=== PATIENT | female | born 1940 | race Caucasian/White ===

== ENCOUNTER 2017-05-14 16:11 | Inpatient (IN) ==
--- NOTE | 2017-05-14 16:20 | Emergency Department Note ---
Disposition Clinical Impression: Weakness of right leg, TIA (transient ischemic attack) Disposition: Admitted As Inpatient Condition: Good General Adult HPI - General Time Seen by Provider: 05/14/17 16:12 Nursing Notes Reviewed: Yes Vital Signs Reviewed: Yes - Related Data Home Medications Medication Instructions Recorded Confirmed Atorvastatin Calcium [Lipitor] 20 mg PO HS 05/13/17 05/13/17 Cholecalciferol (D-3) [Vitamin D] 1,000 unit PO DAILY 05/13/17 05/13/17 Doxazosin [Cardura] 8 mg PO DAILY 05/13/17 05/13/17 Furosemide [Lasix] 20 mg PO DAILY 05/13/17 05/13/17 Levothyroxine Sodium [Synthroid] 137 mcg PO 0630 05/13/17 05/13/17 Lisinopril [Zestril] 40 mg PO DAILY 05/13/17 05/13/17 Metoprolol Succinate [Toprol Xl] 50 mg PO DAILY 05/13/17 05/13/17 Mirabegron [Myrbetriq] 50 mg PO DAILY 05/13/17 05/13/17 [place]-3/Dha/Epa/Fish Oil [Fish Oil 1 tab PO DAILY 05/13/17 05/13/17 1,000 mg Softgel] Previous Rx's Medication Instructions Recorded Docusate [Colace] 100 mg PO BID #60 capsule 05/13/17 HYDROcodone/Acet 5/325 mg [[place] 1 tab PO Q4H PRN 5 Days #20 tab 05/13/17 5-325 mg] Allergies Allergy/AdvReac Type Severity Reaction Status Date / Time No Known Allergies Allergy Verified 05/13/17 08:56 Past Medical History - Past Medical History Medical history: Reports: hypertension, thyroid disease Surgical history: Reports: hysterectomy Psychiatric history: Reports: depression - Social History Smoking Status: Former smoker Smokeless Tobacco Status: No Alcohol use: Reports: none Drug use: Reports: none Course Vital Signs Temperature 98.0 F 05/14/17 16:13 Pulse Rate 57 05/14/17 16:13 Respiratory Rate 18 05/14/17 16:13 Blood Pressure 146/95 05/14/17 16:13 O2 Sat by Pulse Oximetry 96 05/14/17 16:13 Temperature 98.2 F 05/14/17 19:04 Pulse Rate 43 05/14/17 19:04 Respiratory Rate 16 05/14/17 19:04 Blood Pressure 143/89 05/14/17 19:04 O2 Sat by Pulse Oximetry 93 05/14/17 19:04 Oxygen Delivery Oxygen Delivery Room Air Medical Decision Making - MDM Narrative Medical decision making narrative: This documentation is done with the assistance of Dragon dictation. Despite efforts made to ensure accuracy, there may be inaccuracies in director of pupil personnel program or spelling and typographical errors. I examined this patient and my medical decision-making was reviewed with the Resident Physician. I agree with the documented findings, disposition and treatment plan as described except to the extent set forth below. Patient seen on arrival with EMS and Dr. Radford, I agree with his evaluation and treatment plan, supervise care the patient's stay. Patient presents today with possible stroke. She had a 2430 like usual felt fine about 10:00 this morning she thought her face was slightly drooped had some weakness they called the squad she refused to be transported she felt like she was getting better. Still in quite Dr. normal self the called now her agreed that her weakness is pretty much resolved she has not any facial droop at this time no headaches possible history of stroke years ago. She has had a recent bladder surgery and has a catheter in place otherwise she feels fine. Return to CT her head lab work and reassess. This sounds like she could have had a TIA. She is in agreement with this plan. She is not meet stroke alert criteria. Head CT 05/14/17 16:18 IMPRESSION: No acute intracranial abnormality. D/ / Carlos Liao MD / Carlos Liao MD Interpreting Provider: Carlos Liao MD 1724 hrs.: No signs of acute CVA. Her symptoms pretty much withdrawn. We will speak to her about admission for TIA workup. - Lab Data Result diagrams: 05/14/17 16:18 05/14/17 16:18 Lab Results 05/14/17 05/14/17 05/14/17 Range/Units 16:16 16:18 16:18 WBC 11.4 H (4.3-11.1) K/mcL RBC 4.32 (3.82-4.97) M/mcL Hgb 13.3 (11.5-15.4) g/dL Hct 40.5 (35.3-44.9) % MCV 93.8 (83.0-100.0) fL MCH 30.8 (28.0-33.3) pg MCHC 32.8 (31.6-35.5) g/dL RDW 13.3 (11.5-14.5) % Plt Count 144 (140-400) K/mcL MPV 12.8 H (9.4-12.4) fL Immature Gran % 0.3 (0-4) % Seg Neutrophils % 61.5 % Lymphocytes % 29.7 % Monocytes % 6.9 % Eosinophils % 1.2 % Basophils % 0.4 % Neutrophils # 7.0 (1.6-8.9) K/mcL Lymphocytes # 3.4 (0.6-4.6) K/mcL Monocytes # 0.8 (0.0-1.3) K/mcL Eosinophils # 0.1 (0.0-0.6) K/mcL Basophils # 0.0 (0.0-0.2) K/mcL PT (9.4-12.1) Seconds INR APTT (26.0-36.0) Seconds Sodium 141 (136-145) mEq/L Potassium 3.7 (3.5-5.1) mEq/L Chloride 104 (98-107) mEq/L Carbon Dioxide 28 (23-29) mEq/L BUN 21 (8-23) mg/dL Creatinine 0.89 (0.60-1.20) mg/dL Est GFR ( Amer) > 60 (> 60) Est GFR (Non-Af Amer) > 60 (> 60) BUN/Creatinine Ratio 24 (6-26) Glucose 147 H (70-105) mg/dL POC Glucose 135 H (58-89) Calculated Osmolality 298 (280-300) Calcium 9.8 (8.6-10.3) mg/dL 05/14/17 Range/Units 16:22 WBC (4.3-11.1) K/mcL RBC (3.82-4.97) M/mcL Hgb (11.5-15.4) g/dL Hct (35.3-44.9) % MCV (83.0-100.0) fL MCH (28.0-33.3) pg MCHC (31.6-35.5) g/dL RDW (11.5-14.5) % Plt Count (140-400) K/mcL MPV (9.4-12.4) fL Immature Gran % (0-4) % Seg Neutrophils % % Lymphocytes % % Monocytes % % Eosinophils % % Basophils % % Neutrophils # (1.6-8.9) K/mcL Lymphocytes # (0.6-4.6) K/mcL Monocytes # (0.0-1.3) K/mcL Eosinophils # (0.0-0.6) K/mcL Basophils # (0.0-0.2) K/mcL PT 11.0 (9.4-12.1) Seconds INR 1.0 APTT 27.0 (26.0-36.0) Seconds Sodium (136-145) mEq/L Potassium (3.5-5.1) mEq/L Chloride (98-107) mEq/L Carbon Dioxide (23-29) mEq/L BUN (8-23) mg/dL Creatinine (0.60-1.20) mg/dL Est GFR ( Amer) (> 60) Est GFR (Non-Af Amer) (> 60) BUN/Creatinine Ratio (6-26) Glucose (70-105) mg/dL POC Glucose (58-89) Calculated Osmolality (280-300) Calcium (8.6-10.3) mg/dL
--- NOTE | 2017-05-14 16:28 | Emergency Department Note ---
Disposition Clinical Impression: Weakness of right leg TIA (transient ischemic attack) Qualifiers: Transient cerebral ischemia type: unspecified Qualified Code(s): G45.9 - Transient cerebral ischemic attack, unspecified Disposition: Admitted As Inpatient Condition: Good Referrals: Michael Steve MD [Primary Care Provider] - Forms: ED Satisfaction Letter Time of Disposition: 18:23 Neuro HPI - General Chief Complaint: ED Neuro Symptoms/Deficit Stated Complaint: possible TIA Time Seen by Provider: 05/14/17 16:12 Source: patient, EMS Mode of arrival: ambulatory Limitations: no limitations Nursing Notes Reviewed: Yes Vital Signs Reviewed: Yes - History of Present Illness HPI Narrative: Patient is a 76-year-old female with past medical history of previous CVA, hypertension, hyperlipidemia, borderline diabetes. She presents today via EMS due to concern for possible stroke like symptoms. History is obtained by and patient. states that around 10 AM this morning, the patient was having some mild right-sided facial drooping, excessive aphasia, complaining of some weakness of the right lower extremity. He tried to call EMS at that time but the patient refused. This was approximately 6-1/2 hours prior to arrival here. Around 3:30 PM the patient again had symptoms of right lower extremity weakness. At this time, she is agreeable with coming to the ED for further assessment. states that she is back at her baseline in terms of mental functioning, answering questions properly, no longer has any facial drooping. The patient herself only complains of right lower showed a weakness. She does state that she had a brief episode of right lower extremity weakness yesterday but it quickly went away. She reports that this morning when she woke up she felt completely normal and had no symptoms. confirms that she was at her normal baseline this morning upon awakening and had these changes beginning around 10 AM. - Related Data Home Medications: Home Medications Medication Instructions Recorded Confirmed Atorvastatin Calcium [Lipitor] 20 mg PO HS 05/13/17 05/13/17 Cholecalciferol (D-3) [Vitamin D] 1,000 unit PO DAILY 05/13/17 05/13/17 Doxazosin [Cardura] 8 mg PO DAILY 05/13/17 05/13/17 Furosemide [Lasix] 20 mg PO DAILY 05/13/17 05/13/17 Levothyroxine Sodium [Synthroid] 137 mcg PO 0630 05/13/17 05/13/17 Lisinopril [Zestril] 40 mg PO DAILY 05/13/17 05/13/17 Metoprolol Succinate [Toprol Xl] 50 mg PO DAILY 05/13/17 05/13/17 Mirabegron [Myrbetriq] 50 mg PO DAILY 05/13/17 05/13/17 [place]-3/Dha/Epa/Fish Oil [Fish Oil 1 tab PO DAILY 05/13/17 05/13/17 1,000 mg Softgel] Previous Rx's Medication Instructions Recorded Docusate [Colace] 100 mg PO BID #60 capsule 05/13/17 HYDROcodone/Acet 5/325 mg [[place] 1 tab PO Q4H PRN 5 Days #20 tab 05/13/17 5-325 mg] Allergies/Adverse Reactions: Allergies Allergy/AdvReac Type Severity Reaction Status Date / Time No Known Allergies Allergy Verified 05/13/17 08:56 All systems ED: reviewed and negative except as stated. Constitutional: Denies: fever Cardiovascular: Denies: chest pain, palpitations Respiratory: Denies: cough, dyspnea Gastrointestinal: Denies: abdominal pain, nausea, vomiting, diarrhea Genitourinary: Denies: urgency, dysuria Musculoskeletal: Denies: back pain, neck pain Neurological: Reports: weakness. Denies: headache, numbness, paresthesias Past Medical History - Past Medical History Attestation: Yes The following information was validated with the patient. Source: patient Medical history: Reports: hypertension, thyroid disease Surgical history: Reports: hysterectomy Psychiatric history: Reports: depression - Social History Smoking Status: Former smoker Smokeless Tobacco Status: No Alcohol use: Reports: none Drug use: Reports: none Physical Exam - General Limitations: no limitations General appearance: alert, in no apparent distress - Head Head exam: atraumatic, normocephalic, normal inspection - Eye Eye exam: Present: normal appearance, PERRL, EOMI - ENT ENT exam: normal exam, normal oropharynx, mucous membranes moist - Neck Neck exam: Present: normal inspection, full ROM, trachea midline - Chest Chest inspection: Present: normal inspection, symmetric chest wall rise - Respiratory Respiratory exam: Present: normal lung sounds bilaterally - Cardiovascular Cardiovascular exam: Present: regular rate, normal rhythm, normal heart sounds - Abdominal Exam Abdominal exam: Present: soft, Non-Tender. Absent: tenderness, distention, guarding, rebound, rigidity - Extremities Exam Extremities exam: Present: normal inspection, full ROM. Absent: tenderness, pedal edema - Neurological Exam Neurological exam: Present: alert, oriented X3, CN II-XII intact, other ( weakness of RLE, drifts to bed. Please See NIH for further info.) - Psychiatric Psychiatric exam: Present: normal affect, normal mood - Skin Skin exam: Present: warm, dry, intact, normal color Course Course Narrative: Patient mild hypertensive. Otherwise, the rest of the vitals within normal limits. Physical exam shows NIH of 1. She has drift of right lower extremity but does not hit the bed. Otherwise, no other focal neurologic deficits. Heart regular rate and rhythm, lungs clear to auscultation, abdomen soft and nontender. Stroke alert was not called at this time due to improvement in symptoms, patient not a TPA candidate. We will obtain CT of head, chest x-ray, EKG, basic blood work and coags. 17:48 EKG showed sinus rhythm with no acute ST changes. CT the head was negative for any acute intracranial abnormality. No major abnormality and basic labs. Patient was informed of results, recommended hospital stay for CVA/ TIA workup. She was agreeable with this plan. Head CT 05/14/17 16:18 IMPRESSION: No acute intracranial abnormality. D/ / Carlos Liao MD / Carlos Liao MD Interpreting Provider: Carlos Liao MD Vital Signs Temperature 98.0 F 05/14/17 16:13 Pulse Rate 57 05/14/17 16:13 Respiratory Rate 18 05/14/17 16:13 Blood Pressure 146/95 05/14/17 16:13 O2 Sat by Pulse Oximetry 96 05/14/17 16:13 Temperature 98 F 05/14/17 17:36 Pulse Rate 73 05/14/17 17:46 Respiratory Rate 20 05/14/17 17:46 Blood Pressure 150/61 05/14/17 17:46 O2 Sat by Pulse Oximetry 93 05/14/17 17:46 Oxygen Delivery Oxygen Delivery Room Air Neuro Symptoms/Deficit - MDM Narrative Medical decision making narrative: Patient mild hypertensive. Otherwise, the rest of the vitals within normal limits. Physical exam shows NIH of 1. She has drift of right lower extremity but does not hit the bed. Otherwise, no other focal neurologic deficits. Heart regular rate and rhythm, lungs clear to auscultation, abdomen soft and nontender. Stroke alert was not called at this time due to improvement in symptoms, patient not a TPA candidate. We will obtain CT of head, chest x-ray, EKG, basic blood work and coags. 17:48 EKG showed sinus rhythm with no acute ST changes. CT the head was negative for any acute intracranial abnormality. No major abnormality and basic labs. Patient was informed of results, recommended hospital stay for CVA/ TIA workup. She was agreeable with this plan. - Medical Records Medical records reviewed: Yes I reviewed the patient's medical records. - Lab Data Lab results reviewed: Yes I reviewed the patient's lab results. Result diagrams: 05/14/17 16:18 05/14/17 16:18 Lab Results 05/14/17 05/14/17 05/14/17 Range/Units 16:16 16:18 16:18 WBC 11.4 H (4.3-11.1) K/mcL RBC 4.32 (3.82-4.97) M/mcL Hgb 13.3 (11.5-15.4) g/dL Hct 40.5 (35.3-44.9) % MCV 93.8 (83.0-100.0) fL MCH 30.8 (28.0-33.3) pg MCHC 32.8 (31.6-35.5) g/dL RDW 13.3 (11.5-14.5) % Plt Count 144 (140-400) K/mcL MPV 12.8 H (9.4-12.4) fL Immature Gran % 0.3 (0-4) % Seg Neutrophils % 61.5 % Lymphocytes % 29.7 % Monocytes % 6.9 % Eosinophils % 1.2 % Basophils % 0.4 % Neutrophils # 7.0 (1.6-8.9) K/mcL Lymphocytes # 3.4 (0.6-4.6) K/mcL Monocytes # 0.8 (0.0-1.3) K/mcL Eosinophils # 0.1 (0.0-0.6) K/mcL Basophils # 0.0 (0.0-0.2) K/mcL PT (9.4-12.1) Seconds INR APTT (26.0-36.0) Seconds Sodium 141 (136-145) mEq/L Potassium 3.7 (3.5-5.1) mEq/L Chloride 104 (98-107) mEq/L Carbon Dioxide 28 (23-29) mEq/L BUN 21 (8-23) mg/dL Creatinine 0.89 (0.60-1.20) mg/dL Est GFR ( Amer) > 60 (> 60) Est GFR (Non-Af Amer) > 60 (> 60) BUN/Creatinine Ratio 24 (6-26) Glucose 147 H (70-105) mg/dL POC Glucose 135 H (58-89) Calculated Osmolality 298 (280-300) Calcium 9.8 (8.6-10.3) mg/dL 05/14/17 Range/Units 16:22 WBC (4.3-11.1) K/mcL RBC (3.82-4.97) M/mcL Hgb (11.5-15.4) g/dL Hct (35.3-44.9) % MCV (83.0-100.0) fL MCH (28.0-33.3) pg MCHC (31.6-35.5) g/dL RDW (11.5-14.5) % Plt Count (140-400) K/mcL MPV (9.4-12.4) fL Immature Gran % (0-4) % Seg Neutrophils % % Lymphocytes % % Monocytes % % Eosinophils % % Basophils % % Neutrophils # (1.6-8.9) K/mcL Lymphocytes # (0.6-4.6) K/mcL Monocytes # (0.0-1.3) K/mcL Eosinophils # (0.0-0.6) K/mcL Basophils # (0.0-0.2) K/mcL PT 11.0 (9.4-12.1) Seconds INR 1.0 APTT 27.0 (26.0-36.0) Seconds Sodium (136-145) mEq/L Potassium (3.5-5.1) mEq/L Chloride (98-107) mEq/L Carbon Dioxide (23-29) mEq/L BUN (8-23) mg/dL Creatinine (0.60-1.20) mg/dL Est GFR ( Amer) (> 60) Est GFR (Non-Af Amer) (> 60) BUN/Creatinine Ratio (6-26) Glucose (70-105) mg/dL POC Glucose (58-89) Calculated Osmolality (280-300) Calcium (8.6-10.3) mg/dL - Radiology Data Radiology results reviewed: Yes I reviewed the patient's radiology results. Head CT 05/14/17 16:18 IMPRESSION: No acute intracranial abnormality. D/ / Carlos Liao MD / Carlos Liao MD Interpreting Provider: Carlos Liao MD - EKG Data EKG attestation: Yes I reviewed and interpreted this EKG. EKG results narrative: 05/14/2017 16:25. Sinus bradycardia. Likely first-degree AV block. TN 215. QRS 102. QTC 4-40. Normal axis. No acute ST elevation or depression. No changes from previous EKG on 04/26/2017 NIH Stroke Scale - Level of Consciousness LOC: Alert - LOC Questions LOC Questions: Answers both correctly - LOC Commands LOC Commands: Performs both correctly - Best Gaze Best Gaze: Normal - Visual Visual: No visual loss - Facial Palsy Facial Palsy: Normal - Motor Arms Motor Arm-Left: No drift for 10 seconds Motor Arm-Right: No drift for 10 seconds - Motor Legs Motor Leg-Left: No drift for 5 seconds Motor Leg-Right: Drift, does NOT hit bed - Limb Ataxia Limb Ataxia: Absent of affected limb too weak to perform exam - Sensory Sensory: Normal - Best Language Best Language: No aphasia - Dysarthria Dysarthria: Normal - Extinction and Inattention Extinction and Inattention: Normal - NIHSS Total Score NIHSS Total Score: 1 TPA Checklist - LKW: 3-4.5 hrs Add. Warnings/Precautions Patient/family understanding: The patient/family members have been counseled and understood the risk, benefit , and alternatives of treatment. S.B.A.R. - S.B.A.R. Situation: Demographics, MOA Background: Presenting Complaint, Relevant PMH, Meds, & Allergies Assessment: Vital Signs, Course and respsone to treatment, Exam Concerns, Patient/Family Expectation, Pertinant Lab Results, Outstanding Labs Recommendation: Barrier(s) to disposition, Recommendation based on pending studies, treatments, or consults Alvin Report Given to: Tao Esquivel Repor Time: 18:23
[2017-05-14 17:09] LABS: BUN/Creatinine Ratio 24 (6-26); Blood Urea Nitrogen 21 mg/dL (8-23); Calcium 9.8 mg/dL (8.6-10.3); Carbon Dioxide 28 mEq/L (23-29); Chloride 104 mEq/L (98-107); Glucose 147 mg/dL (70-105); Osmolality,Calculated 298 (280-300); Potassium 3.7 mEq/L (3.5-5.1); Sodium 141 mEq/L (136-145); eGFR For African Americans > 60 (> 60); eGFR For Non-African Americans > 60 (> 60)
[2017-05-14 17:11] LABS: Basophils % 0.4 %; Eosinophils # 0.1 K/mcL (0.0-0.6); Eosinophils % 1.2 %; Hematocrit 40.5 % (35.3-44.9); Hemoglobin 13.3 g/dL (11.5-15.4); Immature Granulocytes % 0.3 % (0-4); Lymphocytes # 3.4 K/mcL (0.6-4.6); Lymphocytes % 29.7 %; Mean Corpuscular HGB Conc 32.8 g/dL (31.6-35.5); Mean Corpuscular Hemoglobin 30.8 pg (28.0-33.3); Mean Corpuscular Volume 93.8 fL (83.0-100.0); Mean Platelet Volume 12.8 fL (9.4-12.4); Monocytes # 0.8 K/mcL (0.0-1.3); Monocytes % 6.9 %; Platelet Count 144 K/mcL (140-400); Red Blood Count 4.32 M/mcL (3.82-4.97); Red Cell Distribution Width 13.3 % (11.5-14.5); Segmented Neutrophils % 61.5 %
[2017-05-14] MEDS ORDERED: Aspirin 81 MG TAB.CHEW PO STA (17:24)
[2017-05-14] MEDS ORDERED: Naloxone 0.4 MG/ML INJ IVP PRN (19:57)
[2017-05-14] MEDS ORDERED: Acetaminophen 325 MG TABLET PO PRN (19:57)
[2017-05-14] MEDS ORDERED: *HR* HYDROcodone/Acet 5/325 mg TABLET PO PRN (20:18)
--- NOTE | 2017-05-14 20:36 | Internal Med History&Physical ---
<KwanYoni J - Last Filed: 05/14/17 21:38> Date of Encounter: 05/14/17 Time of Encounter: 20:31 Assessment and Plan (1) TIA (transient ischemic attack) Current visit: Yes Status: Acute Neuro checks,neourology consult, speech eval. fall precaution, trend trop, telemetry Qualifiers: Transient cerebral ischemia type: unspecified Qualified Code(s): G45.9 - Transient cerebral ischemic attack, unspecified (2) Weakness of right leg Current visit: Yes Status: Acute Physical therapy consul Internal Medicine - H&P: HPI Admitted From: Home Plans for Post Hospital Care: Home History of present illness: Ms. Alfredo is a 76 year old female whose medical history include hypertension , hyperlipidemia and CVA. She presnts with concern of right lower extrimity weakness. At home she was having right sided weakness, facial drooping, aphasia and right lower extremity weakness. Initial CT at ED was negative for intracranial bleed. Most of Her initial symptoms appear to have resolved except minor facial droop and right lower extremity weakness. Past Med Surg Social Fam HX - Past Medical History Medical history: hypertension, thyroid disease Psychiatric history: depression - Past Surgical History Surgical History: hysterectomy - Social History Smoking Status: Former smoker Smokeless Tobacco Status: No Alcohol use: none Drug use: none Internal Medicine - H&P: Meds Atorvastatin Calcium [Lipitor] 20 mg PO HS 05/13/17 [History] Cholecalciferol (D-3) [Vitamin D] 1,000 unit PO DAILY 05/13/17 [History] Docusate [Colace] 100 mg PO BID #60 capsule 05/13/17 [Rx] Doxazosin [Cardura] 8 mg PO DAILY 05/13/17 [History] Furosemide [Lasix] 20 mg PO DAILY 05/13/17 [History] HYDROcodone/Acet 5/325 mg [[place] 5-325 mg] 1 tab PO Q4H PRN 5 Days #20 tab 05/13 [Rx] Levothyroxine Sodium [Synthroid] 137 mcg PO 0630 05/13/17 [History] Lisinopril [Zestril] 40 mg PO DAILY 05/13/17 [History] Metoprolol Succinate [Toprol Xl] 50 mg PO DAILY 05/13/17 [History] Mirabegron [Myrbetriq] 50 mg PO DAILY 05/13/17 [History] [place]-3/Dha/Epa/Fish Oil [Fish Oil 1,000 mg Softgel] 1 tab PO DAILY 05/13/17 [ History] 3 Allergy/AdvReac Type Severity Reaction Status Date / Time No Known Allergies Allergy Verified 05/16/17 10:14 All Systems PM: A 10-system review of systems was performed and is negative for pertinent findings except as documented above in the HPI. - Constitutional Constitutional: as per HPI - EENT Eyes: as per HPI Ears: as per HPI Nose, mouth and throat: as per HPI - Cardiovascular Cardiovascular ROS IM: as per HPI - Gastrointestinal Gastrointestinal: as per HPI - Genitourinary Genitourinary: as per HPI - Neurological Neurological ROS: abnormal gait - Constitutional Vitals: Temp Pulse Resp BP Pulse Ox 98.2 F 43 16 143/89 93 05/14/17 19:04 05/14/17 19:04 05/14/17 19:04 05/14/17 19:04 05/14/17 19:04 General appearance: Present: cooperative, A&O X 3, answers questions appropriately - Eye Eye exam: Present: PERRL - ENT ENT exam: Present: mucous membranes dry, normal exam - Neck Neck exam general surgery: Present: supple, trachea midline - Respiratory Respiratory exam: Present: CTAB - Extremities Exam Extremities exam: Present: warm, radial pulses palpable and symmetrical - Neurological Exam Neurological exam: Present: CN II-XII intact, oriented X3, facial droop - Psychiatric Psychiatric exam: Present: normal affect, normal mood - Skin Skin exam: Present: dry, intact, warm Internal Med - H&P Results - Labs CBC & Chem 7: 05/14/17 16:18 05/14/17 16:18 <Maribeth Velazco - Last Filed: 05/16/17 20:19> Date of Encounter: 05/16/17 Internal Medicine - H&P: HPI History of present illness: Ms. Alfredo is a 76 year old female All Systems PM: A 10-system review of systems was performed and is negative for pertinent findings except as documented above in the HPI. - Constitutional Vitals: Temp Pulse Resp BP Pulse Ox 98.2 F 43 16 143/89 93 05/14/17 19:04 05/14/17 19:04 05/14/17 19:04 05/14/17 19:04 05/14/17 19:04 Internal Med - H&P Results - Labs CBC & Chem 7: 05/16/17 04:59 05/16/17 04:59 - Attending Attestation I personally and independently interviewed and examined the patient with the nurse practitioner and reviewed the patient medical records with EXEC[employer]IVE [employer]ENT ACQUISITION CONSULTANT. I am in agreement with risk manager assessment and proposed treatment plan. I have discussed my finding and recommendation with the patient and answer all questions. The patient's medical record was admitted to accurately reflect his encounter.
--- NOTE | 2017-05-14 23:41 | Event Note ---
Date of Encounter: 05/14/17 Time of Encounter: 23:38 I was called tonight with the following MRI results Acute infarct within the high paramedian right parietal lobe with additional microinfarcts within both parietal lobes and within the left frontal lobe. Patient here for TIA vs CVA. Results confirm CVA I spoke with Dr. Jose from neurology who recommends the following Start 75mg plavix now then daily, 81mg asa daily TTE, Carotid doppler study Neurology will follow in consultation.
[2017-05-14] MEDS: *HR* Heparin 5,000 UNIT/ML VIAL SQ SCH (23:59)
[2017-05-15 05:12] LABS: Hematocrit 38.7 % (35.3-44.9); Hemoglobin 12.2 g/dL (11.5-15.4); Mean Corpuscular HGB Conc 31.5 g/dL (31.6-35.5); Mean Corpuscular Hemoglobin 30.1 pg (28.0-33.3); Mean Corpuscular Volume 95.6 fL (83.0-100.0); Mean Platelet Volume 12.7 fL (9.4-12.4); Platelet Count 143 K/mcL (140-400); Red Blood Count 4.05 M/mcL (3.82-4.97); Red Cell Distribution Width 13.5 % (11.5-14.5)
[2017-05-15] MEDS: *HR* Heparin 5,000 UNIT/ML VIAL SQ SCH ×2 (05:36→18:54)
[2017-05-15] MEDS ORDERED: *HR* Heparin 5,000 UNIT/ML VIAL SQ SCH (06:00)
[2017-05-15 06:19] LABS: BUN/Creatinine Ratio 20 (6-26); Blood Urea Nitrogen 20 mg/dL (8-23); Calcium 9.1 mg/dL (8.6-10.3); Carbon Dioxide 28 mEq/L (23-29); Chloride 107 mEq/L (98-107); Chol/HDL Ratio 2.9 (0-4.9); Cholesterol 100 mg/dL (< 200); Glucose 117 mg/dL (70-105); HDL Cholesterol 34 mg/dL (40-59); LDL Cholesterol,Calculated 44 mg/dL (0-99); Osmolality,Calculated 298 (280-300); Potassium 3.8 mEq/L (3.5-5.1); Sodium 142 mEq/L (136-145); Triglycerides 111 mg/dL (< 150); eGFR For African Americans > 60 (> 60); eGFR For Non-African Americans 55 (> 60)
[2017-05-15] MEDS: Lisinopril 20 MG TABLET PO SCH (08:53)
[2017-05-15] MEDS: Aspirin 81 MG TAB.CHEW PO SCH (08:54)
[2017-05-15] MEDS: Cholecalciferol (D-3) 1,000 UNIT TABLET PO SCH (08:54)
[2017-05-15] MEDS: Mirabegron [Myrbetriq] 50 MG PO SCH (08:57)
[2017-05-15] MEDS: Metoprolol XL (24 HR) Succ 50 MG TAB.ER.24H PO SCH (08:57)
--- NOTE | 2017-05-15 11:32 | Internal Med Progress Note ---
Date of Encounter: 05/15/17 Time of Encounter: 11:32 - Subjective Interval history: Patient is a 76-year-old female with past medical history of previous CVA, hypertension, hyperlipidemia, borderline diabetes. She presents today via EMS due to concern for possible stroke like symptoms. History is obtained by and patient. states that around 10 AM this morning, the patient was having some mild right-sided facial drooping, excessive aphasia, complaining of some weakness of the right lower extremity. He tried to call EMS at that time but the patient refused. This was approximately 6-1/2 hours prior to arrival here. Around 3:30 PM the patient again had symptoms of right lower extremity weakness. At this time, she is agreeable with coming to the ED for further assessment. states that she is back at her baseline in terms of mental functioning, answering questions properly, no longer has any facial drooping. The patient herself only complains of right lower showed a weakness. She does state that she had a brief episode of right lower extremity weakness yesterday but it quickly went away. She reports that this morning when she woke up she felt completely normal and had no symptoms. confirms that she was at her normal baseline this morning upon awakening and had these changes beginning around 10 AM. CVA: CT-Head: No ICH or acute pathology MRI: Acute infarct within the high paramedian right parietal lobe with additional microinfarcts within both parietal lobes and within the left frontal lobe Carotid U/S: Results pending Echo: Essentially normal -Her symptoms (slurred speech, rt-sided weakness) resolved my morning -Neurology recommending she be evaluated by PT/OT (not available today) Consult Tuesday. -Continue Asprin and Plavix. -Continue statin -Reduce risks; BP control -No A-Fib noted on ECGs or Telemetry -Cardiology recommending an inplantable loop recorder Essential HTN: -Continue Metoprolol and Lisinopril Hypothyroidism. Continue Synthroid VTE prophylaxis: Continue SQ Heparin - Constitutional Vitals: Temp Pulse Resp BP Pulse Ox 97.9 F 49 16 164/84 94 05/15/17 07:58 05/15/17 07:58 05/15/17 07:58 05/15/17 07:58 05/15/17 07:58 General appearance: Present: cooperative, A&O X 3, no acute distress, answers questions appropriately - Head Head exam: Present: atraumatic, normocephalic - Eye Eye exam: Present: PERRL, conjuntiva pink, sclera anicteric Pupils: Present: PERRL - Neck Neck exam general surgery: Present: supple, trachea midline. Absent: lymphadenopathy - Respiratory Respiratory exam: Present: CTAB. Absent: accessory muscle use, rales, rhonchi, wheezes - Cardiovascular Cardiovascular exam: Present: RRR, +S1, +S2. Absent: diastolic murmur, gallop, rubs, systolic murmur - GI/Abdominal GI/Abdominal exam: Present: normal bowel sounds, soft, no peritoneal signs. Absent: distended, firm, guarding, rebound, rigid, tenderness - Extremities Exam Extremities exam: Present: warm, radial pulses palpable and symmetrical. Absent : calf tenderness, cyanotic, pedal edema - Neurological Exam Neurological exam: Present: CN II-XII intact, oriented X3, no focal deficits. Absent: altered, pronater drift, facial droop, speech deficit Additional comments: Neuro Exam: CN-II-XII wnl Previously observed rt facial droop not noted Motor and Sensory: 5/5 stregth bilaterally throughout upper and lower extremities Numb sensation in right hand Fing-->nose wnl Rapidly alternating movements wnl bilaterally - Skin Skin exam: Present: dry, intact Internal Medicine: Result - Labs CBC & Chem 7: 05/16/17 04:59 05/16/17 04:59 Labs: Short CBC 05/15/17 Range/Units 04:38 WBC 8.1 (4.3-11.1) K/mcL Hgb 12.2 (11.5-15.4) g/dL Hct 38.7 (35.3-44.9) % Plt Count 143 (140-400) K/mcL BMP 05/15/17 04:38 Sodium 142 Potassium 3.8 Chloride 107 Carbon Dioxide 28 BUN 20 Creatinine 0.98 Glucose 117 H Calcium 9.1 Cardiac Enzymes 05/14/17 05/15/17 Range/Units 20:56 04:38 Troponin I < 0.03 < 0.03 (< 0.04) ng/mL - ABG Interpretation ABG results: PT/INR, D-dimer PT 11.0 Seconds (9.4-12.1) 05/14/17 16:22 - Impressions Impressions Brain MRI 05/14/17 21:48 IMPRESSION: Acute infarct within the high paramedian right parietal lobe with additional microinfarcts within both parietal lobes and within the left frontal lobe. The findings were sent to the Radiology Results Communication Center at 10:48 pm on 05/14/2017to be communicated to a licensed caregiver. D/ / Bakari Dutton MD / Bakari Dutton MD Interpreting Provider: Bakari Dutton MD Consult Discharge Plan - Plan Referrals: Michael Steve MD [Primary Care Provider] -
--- NOTE | 2017-05-15 14:23 | Cardiology Consult Note ---
Date of Encounter: 05/15/17 Time of Encounter: 14:00 Assessment and Plan (1) TIA (transient ischemic attack) Current Visit: Yes Status: Acute Per cardiology: -Admitted with facial droop and leg weakness. -CT head without acute findings. -MRI head with: Acute infarct within the high paramedian right parietal lobe with additional microinfarcts within both parietal lobes and within the left frontal lobe. -Neurology consulted. -Patient denies history of a.fib/flutter. -No atrial fibrillation appreciated on ECG/telemetry. Denies palpitations/ fluttering. -TTE with preserved LVEF, no PFO. -Carotid duplex pending. -Possible EP consult tomorrow to discuss possible LOOP recorder. -Will continue to monitor. Qualifiers: Transient cerebral ischemia type: unspecified Qualified Code(s): G45.9 - Transient cerebral ischemic attack, unspecified Discussion w patient/family: The assessment and plan as outlined above was discussed with the patient and/or family members who expressed understanding and agreement. All questions were answered. Thank you for involving us in the care of your patient. Please call with any questions. Discussed and reviewed with . History of Present Illness Consult date: 05/14/17 Requesting physician: Yoni Bowens Consult reason: CVA Chief complaint: unilateral weakness, facial droop History of present illness: Ms. Alfredo is a 76 year old female with a relevant past medical history of HTN , DM, hypothyroidism, obesity, sleep apnea, anemia, OR, CVA, history of bleeding ulcers, depression, diverticulitis. Patient presented to [facility] with complaints of facial drooping and leg weakness. Patient thought she might be having a stroke. Patient has a history of CVA. Patient denies history of atrial fibrillation/flutter. Denies palpitations or fluttering. Denies chest pain. States she feels ok today. Past Med Surg Social Fam HX - Past Medical History Attestation: Yes The following information was validated with the patient. Source: patient, old records reviewed Medical history: hypertension, thyroid disease Psychiatric history: depression - Past Surgical History Surgical History: hysterectomy - Social History Smoking Status: Former smoker Smokeless Tobacco Status: No Alcohol use: none Drug use: none Medications and Allergies Atorvastatin Calcium [Lipitor] 20 mg PO HS 05/13/17 [History] Cholecalciferol (D-3) [Vitamin D] 1,000 unit PO DAILY 05/13/17 [History] Docusate [Colace] 100 mg PO BID #60 capsule 05/13/17 [Rx] Doxazosin [Cardura] 8 mg PO DAILY 05/13/17 [History] Furosemide [Lasix] 20 mg PO DAILY 05/13/17 [History] HYDROcodone/Acet 5/325 mg [[place] 5-325 mg] 1 tab PO Q4H PRN 5 Days #20 tab 05/13 [Rx] Levothyroxine Sodium [Synthroid] 137 mcg PO 0630 05/13/17 [History] Lisinopril [Zestril] 40 mg PO DAILY 05/13/17 [History] Metoprolol Succinate [Toprol Xl] 50 mg PO DAILY 05/13/17 [History] Mirabegron [Myrbetriq] 50 mg PO DAILY 05/13/17 [History] Jet-3/Dha/Epa/Fish Oil [Fish Oil 1,000 mg Softgel] 1 tab PO DAILY 05/13/17 [ History] 3 Allergy/AdvReac Type Severity Reaction Status Date / Time No Known Allergies Allergy Verified 05/13/17 08:56 All Systems Review: The remainder of the systems were reviewed and are negative - Cardiovascular Cardiovascular: as per HPI - Neurological Neurological: other (unilateral weakness, facial drooping) Physical Examination Vital Signs Temperature 98.0 F 05/14/17 16:13 Pulse Rate 57 05/14/17 16:13 Respiratory Rate 18 05/14/17 16:13 Blood Pressure 146/95 05/14/17 16:13 O2 Sat by Pulse Oximetry 96 05/14/17 16:13 Temperature 97.9 F 05/15/17 07:58 Pulse Rate 49 05/15/17 07:58 Respiratory Rate 16 05/15/17 07:58 Blood Pressure 164/84 05/15/17 07:58 O2 Sat by Pulse Oximetry 94 05/15/17 07:58 Oxygen Delivery Oxygen Delivery Room Air General: Conversant, No Apparent Distress HEENT: Atraumatic, Normocephaly, Mucus Membranes Moist Neck: No JVD, Normal carotid pulses Cardiac: Reg Rate and Rhythm, Normal S1 and S2, No Murmur Lungs: Normal Breath Sounds, No Wheeze, Rales, Rhonchi Neuro: Alert and responsive Abdomen: Soft, Non-Tender Skin: No rashes noted on visualized skin Musculoskeletal: No Chest Wall Tenderness Extremities: No Clubbing, No Cyanosis, No Edema, Normal Pulses Results 05/15/17 04:38 05/15/17 04:38 Lab Results Impressions Head CT 05/14/17 16:18 IMPRESSION: No acute intracranial abnormality. D/ / Carlos Liao MD / Carlos Liao MD Interpreting Provider: Carlos Liao MD Brain MRI 05/14/17 21:48 IMPRESSION: Acute infarct within the high paramedian right parietal lobe with additional microinfarcts within both parietal lobes and within the left frontal lobe. The findings were sent to the Radiology Results Communication Center at 10:48 pm on 05/14/2017to be communicated to a licensed caregiver. D/ / Bakari Dutton MD / Bakari Dutton MD Interpreting Provider: Bakari Dutton MD Echocardiogram 05/15/17 21:37 Impressions: LVEF 65-70%. No pulmonary hypertension. Mild concentric left ventricular hypertrophy. No significant valvular dysfunction. No evidence of PFO by color Doppler or agitated saline. Left Ventricular Wall Motion: Rest Echo Findings All wall segments showed normal motion. Findings: Study Quality * Technically adequate exam. Right Ventricle * Normal right ventricular structure and function. Left Atrium * Normal left atrial size. Right Atrium * Normal right atrial size. Interatrial Septum * No evidence of PFO by color Doppler. Aorta * Normally sized aortic root. Pericardium * The pericardium appears normal. Tricuspid Valve * Trace tricuspid regurgitation. * No tricuspid stenosis. * Estimated RVSP is 35 mmHg. * No pulmonary hypertension. Aortic Valve * Aortic valve not well visualized. * No aortic regurgitation. * No aortic stenosis. Pulmonic Valve * No pulmonic stenosis. * Pulmonic valve not well visualized. * Mild pulmonic regurgitation. Left Ventricle * LVEF 65-70%. * Normal left ventricular diastolic function. * No segmental dysfunction. * Mild concentric left ventricular hypertrophy. IVC * Normal IVC dimensions and inspiratory collapse. Mitral Valve * No mitral stenosis. * Normal mitral valve structure. * Trace mitral regurgitation. Active Medications Acetaminophen (Tylenol) 650 mg PO Q6HR PRN PRN Reason: Mild Pain/Fever Stop: 11/13/17 19:58 Hydrocodone Bitart/Acetaminophen ([place] 5-325 Mg) 1 tab PO Q4H PRN PRN Reason: Pain Stop: 11/13/17 20:19 Aspirin (Aspirin) 81 mg PO DAILY NANCY Stop: 11/14/17 09:01 Last Admin: 05/15/17 08:54 Dose: 81 mg Atorvastatin Calcium (Lipitor) 40 mg PO HS NANCY Stop: 11/14/17 21:01 Clopidogrel Bisulfate (Plavix) 75 mg PO DAILY NANCY Stop: 11/13/17 23:46 Last Admin: 05/15/17 08:53 Dose: 75 mg Docusate Sodium (Colace) 100 mg PO BID NANCY PRN Reason: Protocol Stop: 11/13/17 21:01 Last Admin: 05/15/17 08:53 Dose: 100 mg Doxazosin Mesylate (Cardura) 8 mg PO DAILY NANCY Stop: 11/14/17 09:01 Last Admin: 05/15/17 08:54 Dose: 8 mg Heparin Sodium (Porcine) (Heparin) 5,000 unit SQ Q12HR NANCY Stop: 11/13/17 23:46 Last Admin: 05/15/17 05:36 Dose: 5,000 unit Levothyroxine Sodium (Levothyroxine Sodium) 137 mcg PO 0630 NANCY Stop: 11/14/17 06:31 Last Admin: 05/15/17 05:36 Dose: 137 mcg Lisinopril (Zestril) 40 mg PO DAILY NANCY Stop: 11/14/17 09:01 Last Admin: 05/15/17 08:53 Dose: 40 mg Metoprolol Succinate (Toprol Xl) 50 mg PO DAILY NANCY Stop: 11/14/17 09:01 Last Admin: 05/15/17 08:57 Dose: Not Given Naloxone HCl (Narcan) 0.4 mg IVP Q2MIN PRN PRN Reason: SEE COMMENTS Stop: 11/13/17 19:58 Pharmacy Profile Note (Patient Taking Own Medication) 1 each PO DAILY NANCY Stop: 11/14/17 09:01 Last Admin: 05/15/17 08:57 Dose: Not Given Pharmacy Profile Note (Patient Taking Own Medication) 1 each PO DAILY NANCY Stop: 11/14/17 09:01 Last Admin: 05/15/17 08:57 Dose: Not Given Vitamin D (Vitamin D) 1,000 unit PO DAILY NANCY Stop: 11/14/17 09:01 Last Admin: 05/15/17 08:54 Dose: 1,000 unit Laboratory Tests 09/10/16 05/14/17 05/15/17 07:27 20:56 04:38 Hgb Creatinine Troponin I < 0.03 < 0.03 TSH 3.112 05/15/17 05/15/17 05/15/17 04:38 04:38 10:50 Hgb 12.2 Creatinine 0.98 Troponin I < 0.03 TSH - Imaging and Cardiology Chest Xray: report reviewed Echo: report reviewed - EKG Interpretation EKG results cardiology: personally reviewed (ECG with sinus bradycardia, HR 53.) , other (Telemetry reviewed with average HR previous 12 hours noted to be 50, SB.) Consult Discharge Plan - Plan Referrals: Michael Steve MD [Primary Care Provider] -
--- NOTE | 2017-05-15 15:01 | Neurology - Consult Note ---
Date of Encounter: 05/15/17 Time of Encounter: 13:58 Assessment and Plan (1) CVA (cerebral vascular accident) Current Visit: Yes Status: Acute Though clinically patient is stable and did not have any focal motor or lateralizing sign at presentation she did have some mild deficit he seems to resolve now. MRI of the brain did shows evidence of acute infarct Acute infarct within the high paramedian right parietal lobe with additional microinfarcts within both parietal lobes and within the left frontal lobe. Considering involvement of both hemisphere embolic phenomenon remains a possibility. She would need workup including echo and carotid duplex particular to look for any embolic source. At the same time suggest to continue monitor for any positional atrial fibrillation. At the moment she is not in A. fib. As she is quite a stable do not think she would require any heparin at this time. She is currently on aspirin and Plavix suggest to continue. Continue stroke workup continue monitor her blood pressure and keep it stable and continue to monitor for any cardiac arrhythmias Patient may benefit from PT evaluation Discussed with the family in detail Qualifiers: CVA mechanism: unspecified Qualified Code(s): I63.9 - Cerebral infarction, unspecified History of Present Illness HPI: Ms. Alfredo is a 76 year old female WITH medical history include hypertension, hyperlipidemia and CVA. She presents with concern of right lower extremity weakness a long with right sided weakness, facial drooping, aphasia and right lower extremity weakness. Initial CT at ED was negative for intracranial bleed. Most of Her initial symptoms appear to have resolved , except some subjective right lower extremity weakness. With the concern off for TIA as a workup she had an MRI of the brain that shows evidence of acute infarct in the right parietal lobe as well as microinfarct in both parietal and left frontal lobe. Patient remained asymptomatic and quite stable Past Med Surg Social Fam HX - Past Medical History Medical history: hypertension, thyroid disease Psychiatric history: depression - Past Surgical History Surgical History: hysterectomy - Social History Smoking Status: Former smoker Smokeless Tobacco Status: No Alcohol use: none Drug use: none Medications and Allergies Atorvastatin Calcium [Lipitor] 20 mg PO HS 05/13/17 [History] Cholecalciferol (D-3) [Vitamin D] 1,000 unit PO DAILY 05/13/17 [History] Docusate [Colace] 100 mg PO BID #60 capsule 05/13/17 [Rx] Doxazosin [Cardura] 8 mg PO DAILY 05/13/17 [History] Furosemide [Lasix] 20 mg PO DAILY 05/13/17 [History] HYDROcodone/Acet 5/325 mg [[place] 5-325 mg] 1 tab PO Q4H PRN 5 Days #20 tab 05/13 [Rx] Levothyroxine Sodium [Synthroid] 137 mcg PO 0630 05/13/17 [History] Lisinopril [Zestril] 40 mg PO DAILY 05/13/17 [History] Metoprolol Succinate [Toprol Xl] 50 mg PO DAILY 05/13/17 [History] Mirabegron [Myrbetriq] 50 mg PO DAILY 05/13/17 [History] [place]-3/Dha/Epa/Fish Oil [Fish Oil 1,000 mg Softgel] 1 tab PO DAILY 05/13/17 [ History] 3 Allergy/AdvReac Type Severity Reaction Status Date / Time No Known Allergies Allergy Verified 05/13/17 08:56 All Systems: The remainder of the systems were reviewed and are negative Physical Examination - Vital Signs Vital Signs: Initial Vital Signs Temp Pulse Resp BP Pulse Ox 98.0 F 57 18 146/95 96 05/14/17 16:13 05/14/17 16:13 05/14/17 16:13 05/14/17 16:13 05/14/17 16:13 - Exam Exam: GENERAL: Comfortable in no acute distress HEENT: Normal LUNGS: CTA HEART: RRR, S1 S2 Audible, no murmur EXTREMITIES: No Pedal edema. DETAILED NEUROLOGICAL EXAMINATION: MENTAL STATUS: Oriented to person, place, date and situation. Memory: knows the President, Aware of recent events Recent Memory Intact Cranial Nerve Examination: CN - II: Visual Acuity, Field of Vision Normal, Fundus examination: No disk edema, Pupils- size shape reaction to light and accommodation: All normal. CN III, IV, : External ocular movements were intact, Pupils were reactive, Nodrooping of the eyelids CN V: Sensation over the face to light touch and pinprick all normal. Corneal reflexes not tested, jaw jerk normal. CN VII: No facial asymmetry, no flattening of nasolabial folds, no difficulty in closing the eyes, no loss of forehead wrinkles, no difficulty in eye-closure, frowning raising eyebrows. CNVIII: No significant hearing loss CN IX, X: Uvula centralized not deviated, Gag reflex: Not tested CN X1: Sternocleidomastoid, trapezius, normal or evidence of any weakness. CN X11: No Dysarthria, no wasting or fibrilation f tongue muscles, no deviation, tongue muscle strength normal. Motor examination: No hypertrophy, tone was normal, power grade 0-5 Upper limbs Proximal- No difficulty in lifting the arms above the head. Distal- Noweakness in distal muscles On formal testing 5/5 all over Lower limbs Proximal- No difficulty in getting up from the sitting position Distal- No difficulty in walking On formal testing 4/4 on right lower Coordination: [id number] normal. Target pursuit normal finger tapping slow but normal, Rapid alternating moment of wrist normal Sensory system: Superficial sensations- Touch normal. Pain- Pinprick, Temperature all normal, Deep sensation decrease Cortical sensation, Tactile discrimination, localization and extinction all normal. Deep tendon reflexes. Symmetrical bilateral, No evidence of Babinski. No sign of meningeal irritation Gait Examination: Deferred Results - Laboratory Findings CBC and BMP: 05/15/17 04:38 05/15/17 04:38 Abnormal lab findings: Abnormal lab results MCHC 31.5 g/dL (31.6-35.5) L 05/15/17 04:38 MPV 12.7 fL (9.4-12.4) H 05/15/17 04:38 Est GFR (Non-Af Amer) 55 (> 60) L 05/15/17 04:38 Glucose 117 mg/dL (70-105) H 05/15/17 04:38 POC Glucose 135 (58-89) H 05/14/17 16:16 HDL Cholesterol 34 mg/dL (40-59) L 05/15/17 04:38 Consult Discharge Plan - Plan Referrals: Michael Steve MD [Primary Care Provider] -
[2017-05-16 05:25] LABS: Basophils % 0.6 %; Eosinophils # 0.2 K/mcL (0.0-0.6); Eosinophils % 3.1 %; Hematocrit 38.9 % (35.3-44.9); Hemoglobin 12.2 g/dL (11.5-15.4); Immature Granulocytes % 0.3 % (0-4); Lymphocytes # 2.5 K/mcL (0.6-4.6); Lymphocytes % 39.3 %; Mean Corpuscular HGB Conc 31.4 g/dL (31.6-35.5); Mean Corpuscular Volume 95.6 fL (83.0-100.0); Mean Platelet Volume 12.4 fL (9.4-12.4); Monocytes # 0.5 K/mcL (0.0-1.3); Monocytes % 7.8 %; Neutrophils # 3.1 K/mcL (1.6-8.9); Platelet Count 130 K/mcL (140-400); Red Blood Count 4.07 M/mcL (3.82-4.97); Red Cell Distribution Width 13.6 % (11.5-14.5); Segmented Neutrophils % 48.9 %
[2017-05-16 05:38] LABS: BUN/Creatinine Ratio 22 (6-26); Blood Urea Nitrogen 20 mg/dL (8-23); Calcium 9.1 mg/dL (8.6-10.3); Carbon Dioxide 27 mEq/L (23-29); Chloride 107 mEq/L (98-107); Glucose 135 mg/dL (70-105); Osmolality,Calculated 295 (280-300); Potassium 3.9 mEq/L (3.5-5.1); Sodium 140 mEq/L (136-145); eGFR For African Americans > 60 (> 60); eGFR For Non-African Americans > 60 (> 60)
[2017-05-16] MEDS: *HR* Heparin 5,000 UNIT/ML VIAL SQ SCH ×2 (06:02→18:51)
[2017-05-16] MEDS: Metoprolol XL (24 HR) Succ 50 MG TAB.ER.24H PO SCH (07:55)
[2017-05-16] MEDS: Mirabegron [Myrbetriq] 50 MG PO SCH (07:55)
[2017-05-16] MEDS: Aspirin 81 MG TAB.CHEW PO SCH (08:04)
[2017-05-16] MEDS: Lisinopril 20 MG TABLET PO SCH (08:04)
[2017-05-16] MEDS: Cholecalciferol (D-3) 1,000 UNIT TABLET PO SCH (08:04)
--- NOTE | 2017-05-16 09:50 | Discharge Summary ---
Date of Encounter: 05/16/17 Time of Encounter: 09:49 Hospital course: Ms. Alfredo is a 76 year old female - Time Spent with Patient Total time spent providing and/or coordinating discharge services: - Discharge Medications Home Medications: Atorvastatin Calcium [Lipitor] 20 mg PO HS 05/13/17 [History] Cholecalciferol (D-3) [Vitamin D] 1,000 unit PO DAILY 05/13/17 [History] Docusate [Colace] 100 mg PO BID #60 capsule 05/13/17 [Rx] Doxazosin [Cardura] 8 mg PO DAILY 05/13/17 [History] Furosemide [Lasix] 20 mg PO DAILY 05/13/17 [History] HYDROcodone/Acet 5/325 mg [[place] 5-325 mg] 1 tab PO Q4H PRN 5 Days #20 tab 05/13 [Rx] Levothyroxine Sodium [Synthroid] 137 mcg PO 0630 05/13/17 [History] Lisinopril [Zestril] 40 mg PO DAILY 05/13/17 [History] Metoprolol Succinate [Toprol Xl] 50 mg PO DAILY 05/13/17 [History] Mirabegron [Myrbetriq] 50 mg PO DAILY 05/13/17 [History] [place]-3/Dha/Epa/Fish Oil [Fish Oil 1,000 mg Softgel] 1 tab PO DAILY 05/13/17 [ History] Allergies/Adverse Reactions: 3 Allergy/AdvReac Type Severity Reaction Status Date / Time No Known Allergies Allergy Verified 05/13/17 08:56 Date of admission: 05/14/17 19:57 Primary care physician: Michael Steve MD Consults: 05/14/17 21:34 Consult to Cardiology [CONS] Routine Comment: Consulting Provider: Cardiology [place] Reason for Consult: TIA/CVA Time Notified: 21:35 Call Completed: No 05/16/17 08:11 Consult to Electrophysiology (EP) [CONS] Routine Consulting Provider: Electrophysiology [place] Reason for Consult: CVA, possible LOOP recorder Call Completed: Yes - Constitutional Vitals: Temp Pulse Resp BP Pulse Ox 98.2 F 57 14 156/76 95 05/16/17 07:06 05/16/17 07:06 05/16/17 07:06 05/16/17 07:06 05/16/17 07:06 General appearance: Present: cooperative, A&O X 3, no acute distress, answers questions appropriately - Head Head exam: Present: atraumatic, normocephalic - Eye Eye exam: Present: PERRL, conjuntiva pink, sclera anicteric Pupils: Present: PERRL - Neck Neck exam general surgery: Present: supple, trachea midline. Absent: lymphadenopathy - Respiratory Respiratory exam: Present: CTAB. Absent: accessory muscle use, rales, rhonchi, wheezes - Cardiovascular Cardiovascular exam: Present: RRR, +S1, +S2. Absent: diastolic murmur, gallop, rubs, systolic murmur - GI/Abdominal GI/Abdominal exam: Present: normal bowel sounds, soft, no peritoneal signs. Absent: distended, tenderness - Extremities Exam Extremities exam: Present: warm, radial pulses palpable and symmetrical. Absent : calf tenderness, cyanotic, pedal edema - Neurological Exam Neurological exam: Present: CN II-XII intact, oriented X3, no focal deficits. Absent: pronater drift, facial droop, speech deficit - Psychiatric Psychiatric exam: Present: normal affect, normal mood - Skin Skin exam: Present: dry, intact - Patient Status Condition: Good - Discharge Instructions Follow Up With: Michael Steve MD [Primary Care Provider] -
--- NOTE | 2017-05-16 12:39 | Pre-Sedation Evaluation ---
Pre-sedation evaluation - Pre-sedation checklist Date of procedure: 05/16/17 Procedure: loop recorder placement Recent Vitals: Last Vital Signs Temp 98.2 F 05/16/17 11:57 Pulse 58 05/16/17 11:57 Resp 14 05/16/17 11:57 BP 156/72 05/16/17 11:57 Pulse Ox 95 05/16/17 11:57 H&P (including ROS) documented in medical record: Yes Dietary Status: NPO after Midnight Airway Assessment: Patient can open mouth completely, TMJ function normal, Micrognathia (under-bite, receding chin) absent Dentition: dentures removed Possible difficult airway: No ASA Classification *see protocol: CLASS II-Mild systemic disease Plan of Care: Pt appropriate candidate for procedure/moderate/conscious sedation , Risks/benefits of procedure/sedation discussed w/ patient/family
--- NOTE | 2017-05-16 13:06 | Neurology Progress Note ---
Date of Encounter: 05/16/17 Time of Encounter: 07:00 Assessment and Plan (1) CVA (cerebral vascular accident) Current Visit: Yes Status: Acute Though clinically patient is stable and did not have any focal motor or lateralizing sign at presentation she did have some mild deficit he seems to resolve now. MRI of the brain did shows evidence of acute infarct Acute infarct within the high paramedian right parietal lobe with additional microinfarcts within both parietal lobes and within the left frontal lobe. Considering involvement of both hemisphere embolic phenomenon remains a possibility. At the same time suggest to continue monitor for any positional atrial fibrillation. At the moment she is not in A. fib. As she is quite a stable do not think she would require any heparin at this time. She is currently on aspirin and Plavix suggest to continue. Continue stroke workup continue monitor her blood pressure and keep it stable and continue to monitor for any cardiac arrhythmias, already evaluated by cardiology perhaps may benefit from loop recorder for any paroxysmal A. fib agreed with the plan Patient may benefit from PT evaluation. Remained stable could discharge from neurology standpoint Qualifiers: CVA mechanism: unspecified Qualified Code(s): I63.9 - Cerebral infarction, unspecified Subjective Interval history: Clinically stable no other new signs and symptoms office stroke. Remain on antiplatelet therapy. Objective - Constitutional Vitals: Temp Pulse Resp BP Pulse Ox 98.2 F 58 14 156/72 95 05/16/17 11:57 05/16/17 11:57 05/16/17 11:57 05/16/17 11:57 05/16/17 11:57 Results - Laboratory Findings CBC and BMP: 05/16/17 04:59 05/16/17 04:59 Abnormal lab findings: Abnormal lab results MCHC 31.4 g/dL (31.6-35.5) L 05/16/17 04:59 Plt Count 130 K/mcL (140-400) L 05/16/17 04:59 Glucose 135 mg/dL (70-105) H 05/16/17 04:59 POC Glucose 110 (58-89) H 05/16/17 11:55 HDL Cholesterol 34 mg/dL (40-59) L 05/15/17 04:38 Consult Discharge Plan - Plan Referrals: Michael Steve MD [Primary Care Provider] -
--- NOTE | 2017-05-16 13:19 | Event Note ---
Date of Encounter: 05/16/17 Time of Encounter: 12:30 - Cardiology Event Note Loop recorder recommended by Cardiology for cryptogenic CVA. MRI Showed right parietal infarct and multiple infarcts in the parietal and frontal lobe. Patient denies history of atrial fibrillation. Cardiac testing: Telemetry review shows NSR. Avg HR 68 bpm. Frequent PAC. Limited TTE shows preserved EF with no PFO. Carotid US prelim report shows 40-59% stenosis in the MELITA and 60-79% stenosis in the LICA. Physical exam: General: Conversant, No Apparent Distress, A&O x3 HEENT: Atraumatic, Normocephaly, Mucus Membranes Moist Neck: No JVD, Normal carotid pulses Cardiac: Reg Rate and Rhythm, Normal S1 and S2, No Murmur Lungs: Normal Breath Sounds, No Wheeze, Rales, Rhonchi Neuro: Alert and responsive Abdomen: Soft, Non-Tender Skin: No rashes noted on visualized skin Musculoskeletal: No Chest Wall Tenderness Extremities: No Clubbing, No Cyanosis, trace Edema BLE, Normal Pulses I discussed indication and information on Loop to r/o arrhythmia as cause of CVA. Patient and family agree to proceed.
--- NOTE | 2017-05-16 13:47 | Event Note ---
Date of Encounter: 05/16/17 Time of Encounter: 13:45 - Cardiology Event Note S/p loop recorder. No complication. Blank Cardiology will arrange out-pt f/u. No further testing recommended. Please call with questions.
--- NOTE | 2017-05-17 01:57 | Internal Med Progress Note ---
Date of Encounter: 05/16/17 Time of Encounter: 09:49 - Subjective Interval history: HPI (From H&P): "Patient is a 76-year-old female with past medical history of previous CVA, hypertension, hyperlipidemia, borderline diabetes. She presents today via EMS due to concern for possible stroke like symptoms. History is obtained by and patient. states that around 10 AM this morning, the patient was having some mild right-sided facial drooping, excessive aphasia, complaining of some weakness of the right lower extremity. He tried to call EMS at that time but the patient refused. This was approximately 6-1/2 hours prior to arrival here. Around 3:30 PM the patient again had symptoms of right lower extremity weakness. At this time, she is agreeable with coming to the ED for further assessment. states that she is back at her baseline in terms of mental functioning, answering questions properly, no longer has any facial drooping. The patient herself only complains of right lower showed a weakness. She does state that she had a brief episode of right lower extremity weakness yesterday but it quickly went away. She reports that this morning when she woke up she felt completely normal and had no symptoms. confirms that she was at her normal baseline this morning upon awakening and had these changes beginning around 10 AM." Interval changes: -Her symptoms (slurred speech, rt-sided weakness) resolved my morning -Neurology recommending she be evaluated by PT/OT (not available today) Consult Tuesday. -Continue Asprin and Plavix. -Continue statin -Reduce risks; BP control -No A-Fib noted on ECGs or Telemetry -Cardiology recommending an inplantable loop recorder CVA: W/U : CT-Head: No ICH or acute pathology MRI: Acute infarct within the high paramedian right parietal lobe with additional microinfarcts within both parietal lobes and within the left frontal lobe Carotid U/S: Results pending Echo: Essentially normal A-Fib not detected on ECG or telemetry, but pattern of infarcts suggestive of A-Fib with embolic strokes. Cardiology want to place an ILR (gooing later this afternoon) Still waiting for PT/OT eval for rehab Essential HTN: -Continue Metoprolol and Lisinopril Hypothyroidism. Continue Synthroid VTE prophylaxis: Continue SQ Heparin - Constitutional Vitals: Temp Pulse Resp BP Pulse Ox 99.7 F H 70 16 174/70 94 05/16/17 23:23 05/16/17 23:23 05/16/17 23:23 05/16/17 23:23 05/16/17 23:23 General appearance: Present: cooperative, A&O X 3, no acute distress, answers questions appropriately - Head Head exam: Present: atraumatic, normocephalic - Eye Eye exam: Present: EOMI, normal appearance, PERRL, conjuntiva pink, sclera anicteric Pupils: Present: PERRL - Neck Neck exam general surgery: Present: full ROM, supple, trachea midline. Absent: lymphadenopathy, tenderness, nuchal rigidity - Respiratory Respiratory exam: Present: CTAB. Absent: accessory muscle use, rales, rhonchi, wheezes - Cardiovascular Cardiovascular exam: Present: RRR, +S1, +S2. Absent: diastolic murmur, gallop, rubs, systolic murmur - GI/Abdominal GI/Abdominal exam: Present: normal bowel sounds, soft, no peritoneal signs. Absent: distended, tenderness - Extremities Exam Extremities exam: Present: warm. Absent: calf tenderness, cyanotic, pedal edema - Neurological Exam Neurological exam: Present: CN II-XII intact, oriented X3, no focal deficits. Absent: pronater drift, facial droop, speech deficit Additional comments: Still having mild paresthesia at right angle of mouth - Psychiatric Psychiatric exam: Present: normal affect, normal mood - Skin Skin exam: Present: dry, intact Internal Medicine: Result - Labs CBC & Chem 7: 05/16/17 04:59 05/16/17 04:59 Labs: Short CBC 05/16/17 Range/Units 04:59 WBC 6.4 (4.3-11.1) K/mcL Hgb 12.2 (11.5-15.4) g/dL Hct 38.9 (35.3-44.9) % Plt Count 130 L (140-400) K/mcL Neutrophils # 3.1 (1.6-8.9) K/mcL BMP 05/16/17 04:59 Sodium 140 Potassium 3.9 Chloride 107 Carbon Dioxide 27 BUN 20 Creatinine 0.90 Glucose 135 H Calcium 9.1 - ABG Interpretation ABG results: PT/INR, D-dimer PT 11.0 Seconds (9.4-12.1) 05/14/17 16:22 Consult Discharge Plan - Plan Referrals: Michael Steve MD [Primary Care Provider] -
[2017-05-17 04:55] LABS: Basophils % 0.3 %; Eosinophils # 0.2 K/mcL (0.0-0.6); Eosinophils % 3.5 %; Hematocrit 36.8 % (35.3-44.9); Hemoglobin 11.8 g/dL (11.5-15.4); Immature Granulocytes % 0.2 % (0-4); Lymphocytes # 2.6 K/mcL (0.6-4.6); Lymphocytes % 40.8 %; Mean Corpuscular HGB Conc 32.1 g/dL (31.6-35.5); Mean Corpuscular Hemoglobin 29.9 pg (28.0-33.3); Mean Corpuscular Volume 93.4 fL (83.0-100.0); Mean Platelet Volume 12.3 fL (9.4-12.4); Monocytes # 0.5 K/mcL (0.0-1.3); Monocytes % 7.5 %; Platelet Count 123 K/mcL (140-400); Red Blood Count 3.94 M/mcL (3.82-4.97); Red Cell Distribution Width 13.2 % (11.5-14.5); Segmented Neutrophils % 47.7 %
[2017-05-17 05:09] LABS: BUN/Creatinine Ratio 21 (6-26); Blood Urea Nitrogen 16 mg/dL (8-23); Carbon Dioxide 25 mEq/L (23-29); Chloride 108 mEq/L (98-107); Glucose 118 mg/dL (70-105); Osmolality,Calculated 290 (280-300); Potassium 3.7 mEq/L (3.5-5.1); Sodium 139 mEq/L (136-145); eGFR For African Americans > 60 (> 60); eGFR For Non-African Americans > 60 (> 60)
[2017-05-17] MEDS: *HR* Heparin 5,000 UNIT/ML VIAL SQ SCH (06:22)
--- NOTE | 2017-05-17 07:08 | Electrocardiograph Report ---
[place] [id number] Test Date: 2017-05-14 Pat Name: Mala Alfredo Department: 104 Room: 3B64 Gender: F [employer] Supervisor: ANISH : 1940 Requested By: Jerry Foster Order Number: [id number] Reading MD: Jeff Rebolledo MD Measurements Intervals [place] Rate: 53 P: 75 HI: 215 QRS: -5 QRSD: 102 T: 65 QT: 458 QTc: 440 Interpretive Statements SINUS BRADYCARDIA WITH FIRST DEGREE AV BLOCK LOW QRS VOLTAGE IN EXTREMITY LEADS BASELINE ARTIFACT Poor R wave progression Electronically Signed On 05-17-2017 7:07:28 EDT by Jeff Rebolledo MD
[2017-05-17] MEDS: Lisinopril 20 MG TABLET PO SCH (09:10)
[2017-05-17] MEDS: Aspirin 81 MG TAB.CHEW PO SCH (09:10)
[2017-05-17] MEDS: Cholecalciferol (D-3) 1,000 UNIT TABLET PO SCH (09:11)
[2017-05-17] MEDS: Metoprolol XL (24 HR) Succ 50 MG TAB.ER.24H PO SCH (09:11)
[2017-05-17] MEDS: Mirabegron [Myrbetriq] 50 MG PO SCH (09:11)
--- NOTE | 2017-05-17 09:46 | Internal Med Progress Note ---
Date of Encounter: 05/17/17 Time of Encounter: 09:45 - Assessment and plan (1) CVA (cerebral vascular accident) Current Visit: Yes Status: Acute Assessment and plan: previous hx CVA. Now presented with right-sided weakness, facial droop and aphasia. Symptoms resolved in the ED. Head CT non-acute. Brain MRI with acute infarct within the right parietal lobe and microinfarcts to bilateral parietal and left frontal lobe. Evaluated by neurology who suspected embolic source. No evidence of A. fib on telemetry. TTE with EF 65%, no PFO or cardiac source of emboli. Bilateral carotid Dopplers with 40-59% MELITA stenosis and 60-79% LICA stenosis. S/p loop recorder placement 05/16/17 per Cardiology. Cont ASA, palvix, statin. Follow-up with cardiology, neurology outpatient. Qualifiers: CVA mechanism: unspecified Qualified Code(s): I63.9 - Cerebral infarction, unspecified (2) Hypertension Current Visit: Yes Status: Acute Assessment and plan: per hx. BP variable and uncontrolled at times. Possibly secondary to stress related to hospitalization/acute CVA. Monitor BP, consider adding additional antihypertensive agent if BP remains elevated. Qualifiers: Hypertension type: essential hypertension Qualified Code(s): I10 - Essential (primary) hypertension (3) Hypothyroidism Current Visit: Yes Status: Acute Assessment and plan: per hx. Cont home levothyroxine. Qualifiers: Hypothyroidism type: acquired Qualified Code(s): E03.9 - Hypothyroidism, unspecified (4) DVT prophylaxis Current Visit: Yes Status: Acute Assessment and plan: SCDs - Subjective Interval history: Seen and examined at bedside. Patient is new to me. Information obtained from chart review and patient report. Patient says she feels well, back to baseline. No numbness, tingling. No slurred speech or extremity weakness. Denies headache, no vision changes. - Constitutional Vitals: Temp Pulse Resp BP Pulse Ox 98.4 F 64 14 187/69 94 05/17/17 07:21 05/17/17 07:21 05/17/17 07:21 05/17/17 07:21 05/17/17 07:21 General appearance: Present: cooperative, A&O X 3, no acute distress, answers questions appropriately - Head Head exam: Present: atraumatic, normocephalic - Eye Eye exam: Present: PERRL, conjuntiva pink, sclera anicteric Pupils: Present: PERRL - Neck Neck exam general surgery: Present: supple, trachea midline. Absent: lymphadenopathy - Respiratory Respiratory exam: Present: CTAB. Absent: accessory muscle use, rales, rhonchi, wheezes - Cardiovascular Cardiovascular exam: Present: RRR, +S1, +S2. Absent: diastolic murmur, gallop, rubs, systolic murmur Additional comments: loop recorder site with cant shadowing - GI/Abdominal GI/Abdominal exam: Present: normal bowel sounds, soft, no peritoneal signs. Absent: distended, tenderness - Extremities Exam Extremities exam: Present: warm, radial pulses palpable and symmetrical. Absent : calf tenderness, cyanotic, pedal edema - Neurological Exam Neurological exam: Present: CN II-XII intact, oriented X3, no focal deficits. Absent: pronater drift, facial droop, speech deficit - Skin Skin exam: Present: dry, intact Internal Medicine: Result - Labs CBC & Chem 7: 05/17/17 03:59 05/17/17 03:59 Labs: Short CBC 05/17/17 Range/Units 03:59 WBC 6.4 (4.3-11.1) K/mcL Hgb 11.8 (11.5-15.4) g/dL Hct 36.8 (35.3-44.9) % Plt Count 123 L (140-400) K/mcL Neutrophils # 3.0 (1.6-8.9) K/mcL BMP 05/17/17 03:59 Sodium 139 Potassium 3.7 Chloride 108 H Carbon Dioxide 25 BUN 16 Creatinine 0.77 Glucose 118 H Calcium 9.0 - ABG Interpretation ABG results: PT/INR, D-dimer PT 11.0 Seconds (9.4-12.1) 05/14/17 16:22 Consult Discharge Plan - Plan Referrals: Michael Steve MD [Primary Care Provider] -
[2017-05-17] MEDS: amLODIPine 5 MG TABLET PO SCH (15:57)
[2017-05-18] MEDS: Cholecalciferol (D-3) 1,000 UNIT TABLET PO SCH (09:26)
[2017-05-18] MEDS: amLODIPine 5 MG TABLET PO SCH (09:26)
[2017-05-18] MEDS: Lisinopril 20 MG TABLET PO SCH (09:26)
[2017-05-18] MEDS: Metoprolol XL (24 HR) Succ 50 MG TAB.ER.24H PO SCH (09:26)
[2017-05-18] MEDS: Aspirin 81 MG TAB.CHEW PO SCH (09:26)
[2017-05-18] MEDS: Mirabegron [Myrbetriq] 50 MG PO SCH (09:29)
--- NOTE | 2017-05-18 15:58 | Internal Med Progress Note ---
Date of Encounter: 05/18/17 Time of Encounter: 15:55 - Assessment and plan (1) CVA (cerebral vascular accident) Current Visit: Yes Status: Acute Assessment and plan: previous hx CVA. Now presented with right-sided weakness, facial droop and aphasia. Symptoms resolved in the ED. Head CT non-acute. Brain MRI with acute infarct within the right parietal lobe and microinfarcts to bilateral parietal and left frontal lobe. Evaluated by neurology who suspected embolic source. No evidence of A. fib on telemetry. TTE with EF 65%, no PFO or cardiac source of emboli. Bilateral carotid Dopplers with 40-59% MELITA stenosis and 60-79% LICA stenosis. S/p loop recorder placement 05/16/17 per Cardiology. Cont ASA, palvix, statin. Follow-up with cardiology, neurology outpatient. Qualifiers: CVA mechanism: unspecified Qualified Code(s): I63.9 - Cerebral infarction, unspecified (2) Hypertension Current Visit: Yes Status: Acute Assessment and plan: per hx. BP variable and uncontrolled at times. Possibly secondary to stress related to hospitalization/acute CVA. Monitor BP, consider adding additional antihypertensive agent if BP remains elevated. BP improved on 05/18 exam. Qualifiers: Hypertension type: essential hypertension Qualified Code(s): I10 - Essential (primary) hypertension (3) Hypothyroidism Current Visit: Yes Status: Acute Assessment and plan: per hx. Cont home levothyroxine. Qualifiers: Hypothyroidism type: acquired Qualified Code(s): E03.9 - Hypothyroidism, unspecified (4) Bladder tumor Current Visit: Yes Status: Acute Assessment and plan: history of hematuria. Outpatient cystoscopy showed a 2.5 cm bladder tumor. S/p transurethral resection of bladder tumor on 05/13/[address] Coburn Coleman catheter placement. Coleman catheter to remain in place until seen by Dr. Coburn. Follow-up as recently planned (5) DVT prophylaxis Current Visit: Yes Status: Acute Assessment and plan: SCDs - Subjective Interval history: Seen and examined at bedside; says she had uneventful night. Weak and tired but significantly improved. Denies paresthesia, no external new weakness, no blurred vision, no headaches. Still awaiting insurance approval for SNF. - Constitutional Vitals: Temp Pulse Resp BP Pulse Ox 98.1 F 54 16 146/79 96 05/18/17 15:29 05/18/17 15:29 05/18/17 15:29 05/18/17 15:29 05/18/17 15:29 General appearance: Present: cooperative, A&O X 3, no acute distress, answers questions appropriately - Head Head exam: Present: atraumatic, normocephalic - Eye Eye exam: Present: PERRL, conjuntiva pink, sclera anicteric Pupils: Present: PERRL - Neck Neck exam general surgery: Present: supple, trachea midline. Absent: lymphadenopathy - Respiratory Respiratory exam: Present: CTAB. Absent: accessory muscle use, rales, rhonchi, wheezes - Cardiovascular Cardiovascular exam: Present: RRR, +S1, +S2. Absent: diastolic murmur, gallop, rubs, systolic murmur - GI/Abdominal GI/Abdominal exam: Present: normal bowel sounds, soft, no peritoneal signs. Absent: distended, tenderness - Additional comments: + coleman catheter - Extremities Exam Extremities exam: Present: warm, radial pulses palpable and symmetrical. Absent : calf tenderness, cyanotic, pedal edema - Neurological Exam Neurological exam: Present: CN II-XII intact, oriented X3, no focal deficits. Absent: pronater drift, facial droop, speech deficit - Skin Skin exam: Present: dry, intact Internal Medicine: Result - Labs CBC & Chem 7: 05/17/17 03:59 05/17/17 03:59 - ABG Interpretation ABG results: PT/INR, D-dimer PT 11.0 Seconds (9.4-12.1) 05/14/17 16:22 - VTE Documentation of Mechanical Device: Intermittent pneumatic compression device Consult Discharge Plan - Plan Referrals: Michael Steve MD [Primary Care Provider] - 06/01/17 7:00 am
--- NOTE | 2017-05-18 23:15 | Event Note ---
Date of Encounter: 05/18/17 Time of Encounter: 22:49 Notified by pts. nurse that pt. is having hematuria in [place] output which began as pink earlier in the day and has developed into darker pink/red output. Pt. is currently on aspirin and Plavix. Aspirin will be continued. Pts. record from today shows history of hematuria. Outpatient cystoscopy showed a 2.5 cm bladder tumor. Status post transurethral resection of bladder tumor on 05/13/[address] Coburn. [place] catheter placement ordered with order for folate remain in place until patient seen by Dr. Coburn. Continuous bladder irrigation ordered but will need Urology to place 3-way [place]. Plavix recommended by Neurology on 05/14/17 due to patient's TIA versus CVA with results confirming CVA. Neurology re-consulted tonight regarding continued use of Plavix given current hematuria w/recommendation of Dr. Jose to continue aspirin and hold Plavix for now. I appreciate the consult. Will hold Plavix and monitor hematuria. Current Hgb 11.8, Hct 36.8. Urology consulted with follow-up need in a.m. Patient and output to be monitored closely.
--- NOTE | 2017-05-19 07:09 | Urology Progress Note ---
Date of Encounter: 05/19/17 Time of Encounter: 07:08 - Assessment and Plan (1) Bladder tumor Current Visit: Yes Status: Acute Assessment and plan: Continue [place] catheter until follow-up with Dr. Coburn. If possible continue to hold Plavix because of continued gross hematuria after surgery. Okay to continue aspirin. Urine has cleared this morning. We will start LEVSIN for bladder spasms Progress Note Subjective: feels better Narrative: Has had significant hematuria over the last 3 days. Also complaining of bladder spasms. Hematuria seems to have stopped after holding Plavix Objective Initial Vital Signs Temp Pulse Resp BP Pulse Ox 98.0 F 57 18 146/95 96 05/14/17 16:13 05/14/17 16:13 05/14/17 16:13 05/14/17 16:13 05/14/17 16:13 - General physical appearance Present: no distress - Genitourinary Urine Appearance: Present: Clear - Labs 05/17/17 03:59 05/17/17 03:59 - VTE Documentation of Mechanical Device: Intermittent pneumatic compression device Consult Discharge Plan - Plan Referrals: Michael Steve MD [Primary Care Provider] - 06/01/17 7:00 am
[2017-05-19] MEDS: Cholecalciferol (D-3) 1,000 UNIT TABLET PO SCH (08:50)
[2017-05-19] MEDS: Lisinopril 20 MG TABLET PO SCH (08:51)
[2017-05-19] MEDS: Metoprolol XL (24 HR) Succ 50 MG TAB.ER.24H PO SCH (08:53)
[2017-05-19] MEDS: Hyoscyamine SL 0.125 MG TAB.SUBL SL PRN ×2 (08:53→14:23)
[2017-05-19] MEDS: amLODIPine 5 MG TABLET PO SCH (09:00)
[2017-05-19] MEDS: Mirabegron [Myrbetriq] 50 MG PO SCH (10:20)
[2017-05-19 11:32] VITALS: BP 146/62
--- NOTE | 2017-05-19 14:52 | Discharge Summary ---
Orders not resulted at time of discharge: Pending orders 05/16/17 12:57 CL Insert Loop Recorder [CL] Routine Date of Encounter: 05/19/17 Time of Encounter: 14:46 - Discharge Diagnosis (1) CVA (cerebral vascular accident) Priority: Primary Status: Acute Comments: previous hx CVA. Now presented with right-sided weakness, facial droop and aphasia. Symptoms resolved in the ED. Head CT non-acute. Brain MRI with acute infarct within the right parietal lobe and microinfarcts to bilateral parietal and left frontal lobe. Evaluated by neurology who suspected embolic source. No evidence of A. fib on telemetry. TTE with EF 65%, no PFO or cardiac source of emboli. Bilateral carotid Dopplers with 40-59% MELITA stenosis and 60-79% LICA stenosis. S/p loop recorder placement 05/16/17 per Cardiology. Plavix as recommended by neurology however she developed recurrent hematuria (please see below). Holding Plavix. Cont ASA, statin. Follow-up with cardiology, Neurology outpatient. Qualifiers: CVA mechanism: unspecified Qualified Code(s): I63.9 - Cerebral infarction, unspecified (2) Bladder tumor Priority: Primary Status: Acute Comments: history of hematuria. Outpatient cystoscopy showed a 2.5 cm bladder tumor. S/p transurethral resection of bladder tumor on 05/13/[address] Coburn with coleman catheter placement. Developed recurrent hematuria with addition of Plavix for CVA as noted above. Per chart review neurology was contacted and okay to hold Plavix for now. Coleman catheter to remain in place until seen by Dr. Coburn. Follow-up as previously planned (3) Hypertension Priority: Primary Status: Acute Comments: per hx. BP controlled at time of discharge. Continue home BP medication. Qualifiers: Hypertension type: essential hypertension Qualified Code(s): I10 - Essential (primary) hypertension (4) Hypothyroidism Priority: Secondary Status: Acute Comments: per hx. Cont home levothyroxine. Qualifiers: Hypothyroidism type: acquired Qualified Code(s): E03.9 - Hypothyroidism, unspecified Hospital course: Ms. Alfredo is a 76 year old female with PMH CVA, hypertension, hematuria with bladder tumor status post recent urological surgery with Coleman catheter placement and hypothyroidism who presented to [facility] on with complaints of right-sided weakness and slurred speech. She was found to have an acute CVA. Symptoms resolved and she returned to baseline at time of discharge. Please see assessment and plan for further details. Discharge discussed with: patient, family, social work - Time Spent with Patient Total time spent providing and/or coordinating discharge services: Less than 30 minutes - Discharge Medications Prescriptions: HYDROcodone/Acet 5/325 mg [[place] 5-325 mg] 1 tab PO Q4H PRN 5 Days #20 tab PRN Reason: Pain Home Medications: Atorvastatin Calcium [Lipitor] 20 mg PO HS 05/13/17 [History] Cholecalciferol (D-3) [Vitamin D] 1,000 unit PO DAILY 05/13/17 [History] Docusate [Colace] 100 mg PO BID #60 capsule 05/13/17 [Rx] Doxazosin [Cardura] 8 mg PO DAILY 05/13/17 [History] Furosemide [Lasix] 20 mg PO DAILY 05/13/17 [History] Levothyroxine Sodium [Synthroid] 137 mcg PO 0630 05/13/17 [History] Lisinopril [Zestril] 40 mg PO DAILY 05/13/17 [History] Metoprolol Succinate [Toprol Xl] 50 mg PO DAILY 05/13/17 [History] Mirabegron [Myrbetriq] 50 mg PO DAILY 05/13/17 [History] [place]-3/Dha/Epa/Fish Oil [Fish Oil 1,000 mg Softgel] 1 tab PO DAILY 05/13/17 [ History] HYDROcodone/Acet 5/325 mg [[place] 5-325 mg] 1 tab PO Q4H PRN 5 Days #20 tab 05/19 [Rx] Hyoscyamine SL [Levsin Sl] 0.125 mg SL Q4HR PRN tab.subl 05/19/17 [Rx] amLODIPine [Norvasc] 10 mg PO DAILY tablet 05/19/17 [Rx] Allergies/Adverse Reactions: 3 Allergy/AdvReac Type Severity Reaction Status Date / Time No Known Allergies Allergy Verified 05/16/17 10:14 Date of admission: 05/14/17 19:57 Primary care physician: Michael Steve MD Consults: 05/14/17 21:34 Consult to Cardiology [CONS] Routine Comment: Consulting Provider: Cardiology Blank Reason for Consult: TIA/CVA Time Notified: 21:35 Call Completed: No 05/16/17 08:11 Consult to Electrophysiology (EP) [CONS] Routine Consulting Provider: Electrophysiology Blank Reason for Consult: CVA, possible LOOP recorder Call Completed: Yes 05/16/17 11:05 Consult to Occupational Therapy [CONS] Stat Comment: Evaluate, develop and implement POC Reason for Consult: possible SNF Does patient have active BEDREST order?: No Is patient medically & hemodynamically stable?: Yes Consult to Account Manager Relief [CONS] Routine Reason for SW Consult: SNF set up 05/18/17 23:08 Consult to Urology [CONS] Routine Consulting Provider: Urology Blank Reason for Consult: Patient had bladder tumor removal surgery on 05/13/[address] Cbourn and has developed hematuria today which is becoming darker. Coleman in place, however order for continuous bladder irrigation ordered and will require 3-way Coleman placement. Pt. placed on Plavix and aspirin on 05/14/17 for TIA/CVA. Consulted Dr. Jose who recommends holding Plavix and continuing aspirin d/t current hematuria. Call Completed: No Discharging clinician: Brigida Ascencio Anticipated date of discharge: 05/19/17 - Constitutional Vitals: Temp Pulse Resp BP Pulse Ox 99.0 F 73 14 146/62 97 05/19/17 11:31 05/19/17 11:31 05/19/17 11:31 05/19/17 11:31 05/19/17 11:31 General appearance: Present: cooperative, A&O X 3, no acute distress, answers questions appropriately - Head Head exam: Present: atraumatic, normocephalic - Eye Eye exam: Present: PERRL, conjuntiva pink, sclera anicteric Pupils: Present: PERRL - Neck Neck exam general surgery: Present: supple, trachea midline. Absent: lymphadenopathy - Respiratory Respiratory exam: Present: CTAB. Absent: accessory muscle use, rales, rhonchi, wheezes - Cardiovascular Cardiovascular exam: Present: RRR, +S1, +S2. Absent: diastolic murmur, gallop, rubs, systolic murmur - GI/Abdominal GI/Abdominal exam: Present: normal bowel sounds, soft, no peritoneal signs. Absent: distended, tenderness - Additional comments: + coleman catheter - Extremities Exam Extremities exam: Present: warm, radial pulses palpable and symmetrical. Absent : calf tenderness, cyanotic, pedal edema - Neurological Exam Neurological exam: Present: CN II-XII intact, oriented X3, no focal deficits. Absent: pronater drift, facial droop, speech deficit - Skin Skin exam: Present: dry, intact - Patient Status Disposition: Transfer SNF Condition: Good Functional capacity at discharge: uses cane/walker Overall status at discharge: patient is progressing back to baseline - Discharge Instructions Follow Up With: Michael Steve MD [Primary Care Provider] - 06/01/17 7:00 am Patricia Jose MD [Partnered Physician] - (Please call for follow-up appointment within 4-6 weeks) Michael Dent MD [Partnered Physician] - (Please call for follow-up appointment within 1-2 weeks. Please take Medtronic loop recorder to cardiology appointment.) - Diet and Activity Activity: as per physical therapy - VTE Documentation of Mechanical Device: Intermittent pneumatic compression device
--- NOTE | 2017-05-19 15:04 | Physician Discharge Referral ---
ExtendedCare Referral Info Transfer To: SNF Provider in Charge: Brigida Ascencio CNP Provider in Charge after Transfer: PCP Institutional Level of Care: Skilled - Diagnosis (1) CVA (cerebral vascular accident) Status: Acute (2) Bladder tumor Status: Acute (3) Hypertension Status: Acute (4) Hypothyroidism Status: Acute - Transfer Medications Prescriptions: HYDROcodone/Acet 5/325 mg [[place] 5-325 mg] 1 tab PO Q4H PRN 5 Days #20 tab PRN Reason: Pain Home Medications: Atorvastatin Calcium [Lipitor] 20 mg PO HS 05/13/17 [History] Cholecalciferol (D-3) [Vitamin D] 1,000 unit PO DAILY 05/13/17 [History] Docusate [Colace] 100 mg PO BID #60 capsule 05/13/17 [Rx] Doxazosin [Cardura] 8 mg PO DAILY 05/13/17 [History] Furosemide [Lasix] 20 mg PO DAILY 05/13/17 [History] Levothyroxine Sodium [Synthroid] 137 mcg PO 0630 05/13/17 [History] Lisinopril [Zestril] 40 mg PO DAILY 05/13/17 [History] Metoprolol Succinate [Toprol Xl] 50 mg PO DAILY 05/13/17 [History] Mirabegron [Myrbetriq] 50 mg PO DAILY 05/13/17 [History] [place]-3/Dha/Epa/Fish Oil [Fish Oil 1,000 mg Softgel] 1 tab PO DAILY 05/13/17 [ History] HYDROcodone/Acet 5/325 mg [[place] 5-325 mg] 1 tab PO Q4H PRN 5 Days #20 tab 05/19 [Rx] Hyoscyamine SL [Levsin Sl] 0.125 mg SL Q4HR PRN tab.subl 05/19/17 [Rx] amLODIPine [Norvasc] 10 mg PO DAILY tablet 05/19/17 [Rx] Allergies/Adverse Reactions: 3 Allergy/AdvReac Type Severity Reaction Status Date / Time No Known Allergies Allergy Verified 05/16/17 10:14 - Respiratory Orders None Smoking Cessation: Smoking cessation has been advised. For more information, call the [employer] Tobacco Quit Line at 2-123-GNAD-NOW. - Advance Directives Code Status: Full Code - Mobility Orders Ambulate - Rehabiliation Orders Rehab Potential: Good Rehab Orders: Evaluation for Physical Therapy, Evaluation for Occupational Therapy - Diet Orders Cardiac CERTIFICATION: I certify that the transfer of the above named patient to an Extended Care Facility is necessary for the continuing treatment of the diagnosis listed. The above information is true and accurate reflection of patient's current condition. Confidential - Redisclosure prohibited without a patient's written consent.
--- NOTE | 2017-05-19 17:10 | Neurology Progress Note ---
Date of Encounter: 05/19/17 Time of Encounter: 07:30 Assessment and Plan (1) CVA (cerebral vascular accident) Status: Acute Patient is stable from neurology standpoint though she would benefit from antiplatelet therapy but unfortunately she cannot be continued on the Plavix due to this hematuria. At the moment she is already been evaluated by urology will follow the recommendation suggested to discontinue Plavix and continue only with the aspirin. She will be following up with urology as well as with us as an outpatient Qualifiers: CVA mechanism: unspecified Qualified Code(s): I63.9 - Cerebral infarction, unspecified Subjective Interval history: Was called to be evaluated the patient as she has developed hematuria with a recent bladder surgery for tumor. She was seen earlier with the symptoms of right-sided weakness, facial droop and aphasia. Symptoms resolved in the ED. Head CT non-acute. Brain MRI with acute infarct within the right parietal lobe and microinfarcts to bilateral parietal and left frontal lobe. No evidence of A. fib on telemetry. TTE with EF 65%, no PFO or cardiac source of emboli. Bilateral carotid Dopplers with 40-59% MELITA stenosis and 60-79% LICA stenosis. S/p loop recorder placement 05/16/17 per Cardiology. She was on aspirin and Plavix, Last night she developed hematuria, because of that Plavix was discontinued Patient seems to be stable now she did not have any new motor weakness or any other new symptoms or problems Objective - Constitutional Vitals: Temp Pulse Resp BP Pulse Ox 99.0 F 73 14 146/62 97 05/19/17 11:31 05/19/17 11:31 05/19/17 11:31 05/19/17 11:31 05/19/17 11:31 - Neurological Exam Sensorimotor examination: Present: other (Nonfocal neurological examination no new weakness or any other) - VTE Documentation of Mechanical Device: Intermittent pneumatic compression device Results - Laboratory Findings CBC and BMP: 05/17/17 03:59 05/17/17 03:59 Abnormal lab findings: Abnormal lab results Plt Count 123 K/mcL (140-400) L 05/17/17 03:59 Chloride 108 mEq/L (98-107) H 05/17/17 03:59 Glucose 118 mg/dL (70-105) H 05/17/17 03:59 POC Glucose 106 (58-89) H 05/16/17 21:02 HDL Cholesterol 34 mg/dL (40-59) L 05/15/17 04:38 Consult Discharge Plan - Plan Instructions: Ischemic Stroke (DC) Referrals: Michael Steve MD [Primary Care Provider] - 06/01/17 7:00 am Michael Dent MD [Partnered Physician] - (Please call for follow-up appointment within 1-2 weeks. Please take Medtronic loop recorder to cardiology appointment.) Patricia Jose MD [Partnered Physician] - (Please call for follow-up appointment within 4-6 weeks) Prescriptions: HYDROcodone/Acet 5/325 mg [[place] 5-325 mg] 1 tab PO Q4H PRN 5 Days #20 tab PRN Reason: Pain
== END 2017-05-19 16:23 | DRG 41 ==
LOC: EMEROO 16:11 → 3BNU 16:11
PROVIDERS: ADMIT Internal Medicine; ATTEND Internal Medicine

== ENCOUNTER 2017-05-21 12:55 | Observation (INO) ==
[2017-05-21 13:28] LABS: Basophils % 0.4 %; Eosinophils # 0.4 K/mcL (0.0-0.6); Eosinophils % 4.5 %; Hematocrit 40.4 % (35.3-44.9); Hemoglobin 13.1 g/dL (11.5-15.4); Immature Granulocytes % 0.3 % (0-4); Lymphocytes # 2.6 K/mcL (0.6-4.6); Lymphocytes % 33.9 %; Mean Corpuscular HGB Conc 32.4 g/dL (31.6-35.5); Mean Corpuscular Volume 95.5 fL (83.0-100.0); Mean Platelet Volume 12.2 fL (9.4-12.4); Monocytes # 0.6 K/mcL (0.0-1.3); Monocytes % 7.4 %; Neutrophils # 4.1 K/mcL (1.6-8.9); Platelet Count 140 K/mcL (140-400); Red Blood Count 4.23 M/mcL (3.82-4.97); Red Cell Distribution Width 13.5 % (11.5-14.5); Segmented Neutrophils % 53.5 %
[2017-05-21 13:34] LABS: INR 1.1
[2017-05-21 13:36] LABS: Activated Partial Thrombo Time 26.5 Seconds (26.0-36.0)
[2017-05-21 13:41] LABS: Bilirubin,Urine Negative (Negative); Blood,Urine Moderate (Negative); Clarity,Urine Clear (Clear); Color,Urine Yellow (Yellow); Glucose,Urine (UA) Normal (Normal); Ketones,Urine Negative (Negative); Leukocyte Esterase,Urine Moderate (Negative); Nitrite,Urine Positive (Negative); Protein,Urine Negative (Neg-Trace); Specific Gravity,Urine 1.012 (1.010-1.025); Urobilinogen,Urine Normal (Normal)
[2017-05-21 13:42] LABS: Bacteria,Urine None Seen per hpf (None-Few); Hyaline Casts,Urine None Seen per lpf (None-Few); RBC,Urine 0-3 per hpf (0-3); Squamous Epithelial Cell,Urine Moderate per lpf (None-Few); WBC,Urine 15-30 per hpf (0-3)
[2017-05-21 13:48] LABS: Troponin I < 0.03 ng/mL (< 0.04)
[2017-05-21 13:51] LABS: BUN/Creatinine Ratio 17 (6-26); Blood Urea Nitrogen 17 mg/dL (8-23); Calcium 9.3 mg/dL (8.6-10.3); Carbon Dioxide 25 mEq/L (23-29); Chloride 110 mEq/L (98-107); Glucose 106 mg/dL (70-105); Osmolality,Calculated 294 (280-300); Sodium 141 mEq/L (136-145); eGFR For African Americans > 60 (> 60); eGFR For Non-African Americans 52 (> 60)
--- NOTE | 2017-05-21 14:37 | Emergency Department Note ---
Disposition Clinical Impression: Left leg weakness, History of CVA (cerebrovascular accident) Disposition: Admitted As Inpatient Condition: Fair Referrals: Michael Steve MD [Partnered Physician] - Forms: ED Satisfaction Letter Time of Disposition: 14:00 Neuro HPI - General Chief Complaint: ED Dizziness Stated Complaint: weakness Time Seen by Provider: 05/21/17 13:01 Source: patient Mode of arrival: EMS Limitations: no limitations Vital Signs Reviewed: Yes - History of Present Illness HPI Narrative: Mala Alfredo is a 76-year-old female presenting with left lower extremity weakness and dizziness on standing. Patient reports symptoms started at approximately 8 AM when her left leg "gave out on" her. She does not feel that it can support her at this point. Patient had stroke confirmed on MRI last week following bladder resection for bladder cancer. Patient denies nausea, vomiting, chest pain, and shortness of breath. She does admit to an occipital headache which is mild and intermittent. Family does note that the patient had trouble with bradycardia on her last admission, but continues to take metoprolol. - Related Data Home Medications: Home Medications Medication Instructions Recorded Confirmed Atorvastatin Calcium [Lipitor] 20 mg PO HS 05/13/17 05/16/17 Cholecalciferol (D-3) [Vitamin D] 1,000 unit PO DAILY 05/13/17 05/16/17 Doxazosin [Cardura] 8 mg PO DAILY 05/13/17 05/16/17 Furosemide [Lasix] 20 mg PO DAILY 05/13/17 05/16/17 Levothyroxine Sodium [Synthroid] 137 mcg PO 0630 05/13/17 05/16/17 Lisinopril [Zestril] 40 mg PO DAILY 05/13/17 05/16/17 Metoprolol Succinate [Toprol Xl] 50 mg PO DAILY 05/13/17 05/16/17 Mirabegron [Myrbetriq] 50 mg PO DAILY 05/13/17 05/16/17 [place]-3/Dha/Epa/Fish Oil [Fish Oil 1 tab PO DAILY 05/13/17 05/16/17 1,000 mg Softgel] Previous Rx's Medication Instructions Recorded Docusate [Colace] 100 mg PO BID #60 capsule 05/13/17 HYDROcodone/Acet 5/325 mg [[place] 1 tab PO Q4H PRN 5 Days #20 tab 05/19/17 5-325 mg] Hyoscyamine SL [Levsin Sl] 0.125 mg SL Q4HR PRN tab.subl 05/19/17 amLODIPine [Norvasc] 10 mg PO DAILY tablet 05/19/17 Allergies/Adverse Reactions: Allergies Allergy/AdvReac Type Severity Reaction Status Date / Time No Known Allergies Allergy Verified 05/16/17 10:14 Constitutional: Denies: fever, chills Cardiovascular: Denies: chest pain, palpitations, dyspnea on exertion Gastrointestinal: Denies: nausea, vomiting Neurological: Reports: headache, weakness, paresthesias Past Medical History - Past Medical History Medical history: Reports: hypertension, thyroid disease Surgical history: Reports: hysterectomy Psychiatric history: Reports: depression - Social History Smoking Status: Former smoker Smokeless Tobacco Status: No Alcohol use: Reports: none Drug use: Reports: none Physical Exam - General Limitations: no limitations General appearance: alert, in no apparent distress, obese - Head Head exam: atraumatic, normocephalic - Eye Eye exam: Present: PERRL, EOMI. Absent: nystagmus - Respiratory Respiratory exam: Present: normal lung sounds bilaterally. Absent: respiratory distress, accessory muscle use - Cardiovascular Cardiovascular exam: Present: regular rate, normal rhythm, normal heart sounds, +S1 - Expanded Lower Extremity Exam Neurovascular/Tendon exam: Present: sensory deficit (left lower extremity paresthesia). Absent: motor deficit - Neurological Exam Neurological exam: Present: alert, oriented X3 - Psychiatric Psychiatric exam: Present: normal affect, normal mood - Skin Skin exam: Present: warm, dry Course Course Narrative: Patient with recent history of stroke presented with subjectively worsened left lower extremity weakness. Stroke alert was called 10 minutes after presentation. NIH score of 1. Patient not a candidate for TPA due to recent stroke. CT head negative for hemorrhagic conversion of previous stroke. ASA administered. CBC, BMP, and coags without acute findings. Urinalysis borderline for infection, and urine was sent for culture. Dr. Luis, [facility] neurology, evaluated the patient at bedside and suggested medical management and recommended CT angiography, which did not demonstrate hemorrhagic conversion , but did show stenotic regions. Patient was discussed with the admitting hospitalist who accepted the patient with plan for inpatient MRI. Vital Signs Temperature 97.9 F 05/21/17 13:02 Pulse Rate 56 05/21/17 13:02 Respiratory Rate 15 05/21/17 13:02 Blood Pressure 133/60 05/21/17 13:02 O2 Sat by Pulse Oximetry 98 05/21/17 13:02 Temperature 97.9 F 05/21/17 13:02 Pulse Rate 47 05/21/17 15:02 Respiratory Rate 15 05/21/17 15:02 Blood Pressure 147/74 05/21/17 15:02 O2 Sat by Pulse Oximetry 94 05/21/17 15:02 Oxygen Delivery Oxygen Delivery Room Air Neuro Symptoms/Deficit - Medical Records Medical records reviewed: Yes I reviewed the patient's medical records. - Lab Data Lab results reviewed: Yes I reviewed the patient's lab results. Result diagrams: 05/21/17 13:23 05/21/17 13:23 Lab Results 05/21/17 05/21/17 05/21/17 Range/Units 13:11 13:23 13:23 WBC 7.7 (4.3-11.1) K/mcL RBC 4.23 (3.82-4.97) M/mcL Hgb 13.1 (11.5-15.4) g/dL Hct 40.4 (35.3-44.9) % MCV 95.5 (83.0-100.0) fL MCH 31.0 (28.0-33.3) pg MCHC 32.4 (31.6-35.5) g/dL RDW 13.5 (11.5-14.5) % Plt Count 140 (140-400) K/mcL MPV 12.2 (9.4-12.4) fL Immature Gran % 0.3 (0-4) % Seg Neutrophils % 53.5 % Lymphocytes % 33.9 % Monocytes % 7.4 % Eosinophils % 4.5 % Basophils % 0.4 % Neutrophils # 4.1 (1.6-8.9) K/mcL Lymphocytes # 2.6 (0.6-4.6) K/mcL Monocytes # 0.6 (0.0-1.3) K/mcL Eosinophils # 0.4 (0.0-0.6) K/mcL Basophils # 0.0 (0.0-0.2) K/mcL PT 12.0 (9.4-12.1) Seconds INR 1.1 APTT 26.5 (26.0-36.0) Seconds Sodium (136-145) mEq/L Potassium (3.5-5.1) mEq/L Chloride (98-107) mEq/L Carbon Dioxide (23-29) mEq/L BUN (8-23) mg/dL Creatinine (0.60-1.20) mg/dL Est GFR ( Amer) (> 60) Est GFR (Non-Af Amer) (> 60) BUN/Creatinine Ratio (6-26) Glucose (70-105) mg/dL POC Glucose 99 H (58-89) mg/dL Calculated Osmolality (280-300) Calcium (8.6-10.3) mg/dL Troponin I (< 0.04) ng/mL Urine Color (Yellow) Urine Clarity (Clear) Urine pH (5.0-8.0) pH Units Ur Specific [place] (1.010-1.025) Urine Protein (Neg-Trace) mg/dL Urine Glucose (UA) (Normal) mg/dL Urine Ketones (Negative) mg/dL Urine Blood (Negative) Urine Nitrite (Negative) Urine Bilirubin (Negative) Urine Urobilinogen (Normal) mg/dL Ur Leukocyte Esterase (Negative) Urine Microscopic RBC (0-3) per hpf Urine Microscopic WBC (0-3) per hpf Ur Squamous Epith Cells (None-Few) per lpf Urine Bacteria (None-Few) per hpf Hyaline Casts (None-Few) per lpf Ur Culture Indicated? (NO) 05/21/17 05/21/17 Range/Units 13:23 13:31 WBC (4.3-11.1) K/mcL RBC (3.82-4.97) M/mcL Hgb (11.5-15.4) g/dL Hct (35.3-44.9) % MCV (83.0-100.0) fL MCH (28.0-33.3) pg MCHC (31.6-35.5) g/dL RDW (11.5-14.5) % Plt Count (140-400) K/mcL MPV (9.4-12.4) fL Immature Gran % (0-4) % Seg Neutrophils % % Lymphocytes % % Monocytes % % Eosinophils % % Basophils % % Neutrophils # (1.6-8.9) K/mcL Lymphocytes # (0.6-4.6) K/mcL Monocytes # (0.0-1.3) K/mcL Eosinophils # (0.0-0.6) K/mcL Basophils # (0.0-0.2) K/mcL PT (9.4-12.1) Seconds INR APTT (26.0-36.0) Seconds Sodium 141 (136-145) mEq/L Potassium 4.0 (3.5-5.1) mEq/L Chloride 110 H (98-107) mEq/L Carbon Dioxide 25 (23-29) mEq/L BUN 17 (8-23) mg/dL Creatinine 1.02 (0.60-1.20) mg/dL Est GFR ( Amer) > 60 (> 60) Est GFR (Non-Af Amer) 52 L (> 60) BUN/Creatinine Ratio 17 (6-26) Glucose 106 H (70-105) mg/dL POC Glucose (58-89) mg/dL Calculated Osmolality 294 (280-300) Calcium 9.3 (8.6-10.3) mg/dL Troponin I < 0.03 (< 0.04) ng/mL Urine Color Yellow (Yellow) Urine Clarity Clear (Clear) Urine pH 6.0 (5.0-8.0) pH Units Ur Specific [place] 1.012 (1.010-1.025) Urine Protein Negative (Neg-Trace) mg/dL Urine Glucose (UA) Normal (Normal) mg/dL Urine Ketones Negative (Negative) mg/dL Urine Blood Moderate H (Negative) Urine Nitrite Positive A (Negative) Urine Bilirubin Negative (Negative) Urine Urobilinogen Normal (Normal) mg/dL Ur Leukocyte Esterase Moderate H (Negative) Urine Microscopic RBC 0-3 (0-3) per hpf Urine Microscopic WBC 15-30 H (0-3) per hpf Ur Squamous Epith Cells Moderate H (None-Few) per lpf Urine Bacteria None Seen (None-Few) per hpf Hyaline Casts None Seen (None-Few) per lpf Ur Culture Indicated? YES A (NO) - Radiology Data Radiology results reviewed: Yes I reviewed the patient's radiology results. CT angiography of the head and neck does not show any acute signs of vascular insufficiency this point. Chest x-ray stable. Stroke alert CT scan is otherwise unremarkable except for chronic changes based on the previous MRI from one week ago - EKG Data EKG attestation: Yes I reviewed and interpreted this EKG. EKG results narrative: EKG reviewed. Normal. No acute signs of ST segment elevation or abnormality. Intervals within normal limits. NIH Stroke Scale - Level of Consciousness LOC: Alert - LOC Questions LOC Questions: Answers both correctly - LOC Commands LOC Commands: Performs both correctly - Best Gaze Best Gaze: Normal - Visual Visual: No visual loss - Facial Palsy Facial Palsy: Normal - Motor Arms Motor Arm-Left: No drift for 10 seconds Motor Arm-Right: No drift for 10 seconds - Motor Legs Motor Leg-Left: No drift for 5 seconds Motor Leg-Right: No drift for 5 seconds - Limb Ataxia Limb Ataxia: Normal, No Ataxia - Sensory Sensory: Mild to moderate loss, "not as sharp" - Best Language Best Language: No aphasia - Dysarthria Dysarthria: Normal - Extinction and Inattention Extinction and Inattention: Normal - NIHSS Total Score NIHSS Total Score: 1 Attestation Statement - Attestation Attestation: I, Yemi Colon DO, examined this patient [id number] and my medical decision-making was reviewed with Bruno Nails PGY-1, Resident Physician. I agree with the documented findings, disposition and treatment plan as described except to the extent set forth below. Please see my progress notes for details.
--- NOTE | 2017-05-21 14:38 | Emergency Department Note ---
Disposition Clinical Impression: Left leg weakness, History of CVA (cerebrovascular accident) Disposition: Admitted As Inpatient Condition: Fair Referrals: Michael Steve MD [Primary Care Provider] - Forms: ED Satisfaction Letter Time of Disposition: 16:22 General Adult HPI - General Chief complaint: ED Dizziness Stated complaint: weakness Time Seen by Provider: 05/21/17 13:01 Source: patient Limitations: no limitations - History of Present Illness Pain Scale: 0 - Related Data Home Medications Medication Instructions Recorded Confirmed Atorvastatin Calcium [Lipitor] 20 mg PO HS 05/13/17 05/16/17 Cholecalciferol (D-3) [Vitamin D] 1,000 unit PO DAILY 05/13/17 05/16/17 Doxazosin [Cardura] 8 mg PO DAILY 05/13/17 05/16/17 Furosemide [Lasix] 20 mg PO DAILY 05/13/17 05/16/17 Levothyroxine Sodium [Synthroid] 137 mcg PO 0630 05/13/17 05/16/17 Lisinopril [Zestril] 40 mg PO DAILY 05/13/17 05/16/17 Metoprolol Succinate [Toprol Xl] 50 mg PO DAILY 05/13/17 05/16/17 Mirabegron [Myrbetriq] 50 mg PO DAILY 05/13/17 05/16/17 [place]-3/Dha/Epa/Fish Oil [Fish Oil 1 tab PO DAILY 05/13/17 05/16/17 1,000 mg Softgel] Previous Rx's Medication Instructions Recorded Docusate [Colace] 100 mg PO BID #60 capsule 05/13/17 HYDROcodone/Acet 5/325 mg [[place] 1 tab PO Q4H PRN 5 Days #20 tab 05/19/17 5-325 mg] Hyoscyamine SL [Levsin Sl] 0.125 mg SL Q4HR PRN tab.subl 05/19/17 amLODIPine [Norvasc] 10 mg PO DAILY tablet 05/19/17 Allergies Allergy/AdvReac Type Severity Reaction Status Date / Time No Known Allergies Allergy Verified 05/16/17 10:14 Past Medical History - Past Medical History Medical history: Reports: hypertension, thyroid disease Surgical history: Reports: hysterectomy Psychiatric history: Reports: depression - Social History Smoking Status: Former smoker Smokeless Tobacco Status: No Alcohol use: Reports: none Drug use: Reports: none Physical Exam - General Limitations: no limitations General appearance: alert Course Vital Signs Temperature 97.9 F 05/21/17 13:02 Pulse Rate 56 05/21/17 13:02 Respiratory Rate 15 05/21/17 13:02 Blood Pressure 133/60 05/21/17 13:02 O2 Sat by Pulse Oximetry 98 05/21/17 13:02 Temperature 97.9 F 05/21/17 13:02 Pulse Rate 49 05/21/17 16:18 Respiratory Rate 15 05/21/17 16:18 Blood Pressure 147/74 05/21/17 15:02 O2 Sat by Pulse Oximetry 96 05/21/17 16:18 Oxygen Delivery Oxygen Delivery Room Air Medical Decision Making - Lab Data Result diagrams: 05/21/17 13:23 05/21/17 13:23 Lab Results 05/21/17 05/21/17 05/21/17 Range/Units 13:11 13:23 13:23 WBC 7.7 (4.3-11.1) K/mcL RBC 4.23 (3.82-4.97) M/mcL Hgb 13.1 (11.5-15.4) g/dL Hct 40.4 (35.3-44.9) % MCV 95.5 (83.0-100.0) fL MCH 31.0 (28.0-33.3) pg MCHC 32.4 (31.6-35.5) g/dL RDW 13.5 (11.5-14.5) % Plt Count 140 (140-400) K/mcL MPV 12.2 (9.4-12.4) fL Immature Gran % 0.3 (0-4) % Seg Neutrophils % 53.5 % Lymphocytes % 33.9 % Monocytes % 7.4 % Eosinophils % 4.5 % Basophils % 0.4 % Neutrophils # 4.1 (1.6-8.9) K/mcL Lymphocytes # 2.6 (0.6-4.6) K/mcL Monocytes # 0.6 (0.0-1.3) K/mcL Eosinophils # 0.4 (0.0-0.6) K/mcL Basophils # 0.0 (0.0-0.2) K/mcL PT 12.0 (9.4-12.1) Seconds INR 1.1 APTT 26.5 (26.0-36.0) Seconds Sodium (136-145) mEq/L Potassium (3.5-5.1) mEq/L Chloride (98-107) mEq/L Carbon Dioxide (23-29) mEq/L BUN (8-23) mg/dL Creatinine (0.60-1.20) mg/dL Est GFR ( Amer) (> 60) Est GFR (Non-Af Amer) (> 60) BUN/Creatinine Ratio (6-26) Glucose (70-105) mg/dL POC Glucose 99 H (58-89) mg/dL Calculated Osmolality (280-300) Calcium (8.6-10.3) mg/dL Troponin I (< 0.04) ng/mL Urine Color (Yellow) Urine Clarity (Clear) Urine pH (5.0-8.0) pH Units Ur Specific Joes (1.010-1.025) Urine Protein (Neg-Trace) mg/dL Urine Glucose (UA) (Normal) mg/dL Urine Ketones (Negative) mg/dL Urine Blood (Negative) Urine Nitrite (Negative) Urine Bilirubin (Negative) Urine Urobilinogen (Normal) mg/dL Ur Leukocyte Esterase (Negative) Urine Microscopic RBC (0-3) per hpf Urine Microscopic WBC (0-3) per hpf Ur Squamous Epith Cells (None-Few) per lpf Urine Bacteria (None-Few) per hpf Hyaline Casts (None-Few) per lpf Ur Culture Indicated? (NO) 05/21/17 05/21/17 Range/Units 13:23 13:31 WBC (4.3-11.1) K/mcL RBC (3.82-4.97) M/mcL Hgb (11.5-15.4) g/dL Hct (35.3-44.9) % MCV (83.0-100.0) fL MCH (28.0-33.3) pg MCHC (31.6-35.5) g/dL RDW (11.5-14.5) % Plt Count (140-400) K/mcL MPV (9.4-12.4) fL Immature Gran % (0-4) % Seg Neutrophils % % Lymphocytes % % Monocytes % % Eosinophils % % Basophils % % Neutrophils # (1.6-8.9) K/mcL Lymphocytes # (0.6-4.6) K/mcL Monocytes # (0.0-1.3) K/mcL Eosinophils # (0.0-0.6) K/mcL Basophils # (0.0-0.2) K/mcL PT (9.4-12.1) Seconds INR APTT (26.0-36.0) Seconds Sodium 141 (136-145) mEq/L Potassium 4.0 (3.5-5.1) mEq/L Chloride 110 H (98-107) mEq/L Carbon Dioxide 25 (23-29) mEq/L BUN 17 (8-23) mg/dL Creatinine 1.02 (0.60-1.20) mg/dL Est GFR ( Amer) > 60 (> 60) Est GFR (Non-Af Amer) 52 L (> 60) BUN/Creatinine Ratio 17 (6-26) Glucose 106 H (70-105) mg/dL POC Glucose (58-89) mg/dL Calculated Osmolality 294 (280-300) Calcium 9.3 (8.6-10.3) mg/dL Troponin I < 0.03 (< 0.04) ng/mL Urine Color Yellow (Yellow) Urine Clarity Clear (Clear) Urine pH 6.0 (5.0-8.0) pH Units Ur Specific Joes 1.012 (1.010-1.025) Urine Protein Negative (Neg-Trace) mg/dL Urine Glucose (UA) Normal (Normal) mg/dL Urine Ketones Negative (Negative) mg/dL Urine Blood Moderate H (Negative) Urine Nitrite Positive A (Negative) Urine Bilirubin Negative (Negative) Urine Urobilinogen Normal (Normal) mg/dL Ur Leukocyte Esterase Moderate H (Negative) Urine Microscopic RBC 0-3 (0-3) per hpf Urine Microscopic WBC 15-30 H (0-3) per hpf Ur Squamous Epith Cells Moderate H (None-Few) per lpf Urine Bacteria None Seen (None-Few) per hpf Hyaline Casts None Seen (None-Few) per lpf Ur Culture Indicated? YES A (NO) Attestation Statement - Attestation Attestation: I, Yemi Colon DO, examined this patient [id number] and my medical decision-making was reviewed with Bruno Nails PGY-1, Resident Physician. I agree with the documented findings, disposition and treatment plan as described except to the extent set forth below. Please see my progress notes for details. 76-year-old female presents to the emergency room for evaluation of left lower extremity weakness. Patient did have a recent stroke within the last week is confirmed by MRI. She was seen and admitted at this facility for evaluation. During the treatment course the patient was discharged home with recommendation to stop using Plavix or her aspirin. 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 Patient denies any chest pain shortness of breath headache vision changes nausea vomiting or diarrhea. She has any ataxia neurologic symptoms other presenting issues prior to these events. Patient woke up this morning at 6 AM and had no symptoms until approximately 8:30 this morning. At that time she started to notice some weakness in her left leg and difficulty with her left upper extremity. The stroke was called by myself after approximately 10 minutes of evaluation at the bedside with the patient. Subjectively her NIH stroke scale is approximately 1 and there is low risk for acute strokelike symptoms at this time but considering the patient did have a recent MRI that confirmed a vascular ischemic event shoulder was contacted. Patient is not a candidate he does have a known stroke with the last [address] Luis reviewed and evaluated the patient at the bedside here in the emergency room. The stroke. CT scan was reviewed by myself as well as the radiologist confirming a previous stroke in the right parietal area does not show any acute signs of hemorrhagic conversion. The neurologist reviewed and evaluated the patient feeling that at this time she does not meet any criteria for TPA and will have medical management started this point. Recommended CT angiography if there is any acute or concerning stenotic presentation on that evaluation that she could be transferred to [facility] for definitive management. This information was discussed reviewed and evaluated in front of the family at the bedside. They appreciated concern are still left in the be evaluated at our hospital for treatment if available. Further workup treatment course and evaluation will be completed in the hospital setting. Patient will be given a whole aspirin here today and then admission process will be completed as well as CT angiography is unremarkable. My evaluation the patient the bedside shows no acute neurologic deficits cranial nerves II through XII appear to be grossly intact. Patient does have some subjective sensation deficits in the lower extremities on the left side. No other acute issues noted this time. No critical care provider this patient's treatment course at this point. See detailed documentation of the physical exam, medical intervention, medical decision-making and disposition in the resident physician's note. [id number] Patient has no acute signs of vascular ischemia or insufficiency to the brain at this time. Patient is mentating appropriately. Patient will be discussed with the hospitalist for admission. Aspirin was given here in the emergency room. Patient otherwise is clinically stable. No acute neurologic changes or deficits at this point. Patient's family still requesting to be evaluated at this facility for definitive management. Hospitaist was contacted at this time for admission process 1600 Patient was admitted without any complications this time. No other recommendations issues noted. Patient is otherwise clinically stable.
[2017-05-21] MEDS ORDERED: Aspirin 81 MG TAB.CHEW PO ONE (14:43)
--- NOTE | 2017-05-21 20:44 | Internal Med History&Physical ---
Date of Encounter: 05/21/17 Time of Encounter: 21:00 Assessment and Plan (1) Left leg weakness Current visit: Yes Status: Acute Patient reports a one-day onset of left lower extremity weakness which has resolved on exam Patient with no neurological deficits on my exam In the ER, CT of the head showed evolving subacute right paramedian frontoparietal junctional infarction. CTA of the head/neck showed approximately 30% right and 60% left internal carotid arterial stenosis. Tele-stroke [facility] was consult from the ER with recommendations not to give TPA due to not meeting criteria. Will order MRI of brain Will place consult for neurology but will need to be notified in the morning (2) History of CVA (cerebrovascular accident) Current visit: Yes Status: Acute Patient with a history of CVA approximately one week ago (3) Hypertension Current visit: No Status: Acute Will hold home blood pressure medications for now for permissive hypertension due to concerns for new CVA Qualifiers: Hypertension type: essential hypertension Qualified Code(s): I10 - Essential (primary) hypertension (4) Hypothyroidism Current visit: No Status: Acute Continue levothyroxine Qualifiers: Hypothyroidism type: acquired Qualified Code(s): E03.9 - Hypothyroidism, unspecified (5) Bladder tumor Current visit: No Status: Acute Patient with recent bladder surgery seen by urology Internal Medicine - H&P: HPI Chief complaint: Left-sided weakness Admitted From: Long-term Nursing Facility Plans for Post Hospital Care: Home History of present illness: Patient is a 76-year-old female with past medical history significant for hypertension, hypothyroid, hyperlipidemia and recent CVA approximately one week ago who presents to the ER on 05/21/17 due to left-sided weakness. Family who is present at bedside reports that patient experienced left lower extremity weakness and was unable to ambulate today at the [facility] so she was brought to the ER for further evaluation. Apparently patient was recently diagnosed with a CVA approximately one week ago and was started on aspirin but Plavix was not recommended due to recent bladder surgery. In the ER, CT of the head showed evolving subacute right paramedian frontoparietal junctional infarction. CTA of the head/neck showed approximately 30% right and 60% left internal carotid arterial stenosis. Tele-stroke [facility] was consult from the ER with recommendations not to give TPA due to not meeting criteria. She will be admitted to medical surgical floor for further management. Past Med Surg Social Fam HX - Past Medical History Medical history: hypertension, thyroid disease Psychiatric history: depression - Past Surgical History Surgical History: hysterectomy - Social History Smoking Status: Former smoker Smokeless Tobacco Status: No Alcohol use: none Drug use: none - Additional Family History Additional family history: Noncontributory Internal Medicine - H&P: Meds Atorvastatin Calcium [Lipitor] 20 mg PO HS 05/13/17 [History] Docusate [Colace] 100 mg PO BID #60 capsule 05/13/17 [Rx] Doxazosin [Cardura] 8 mg PO DAILY 05/13/17 [History] Furosemide [Lasix] 20 mg PO DAILY 05/13/17 [History] Levothyroxine Sodium [Synthroid] 137 mcg PO 0630 05/13/17 [History] Lisinopril [Zestril] 40 mg PO DAILY 05/13/17 [History] Metoprolol Succinate [Toprol Xl] 50 mg PO DAILY 05/13/17 [History] Mirabegron [Myrbetriq] 50 mg PO DAILY 05/13/17 [History] [place]-3/Dha/Epa/Fish Oil [Fish Oil 1,000 mg Softgel] 1 tab PO DAILY 05/13/17 [ History] Hyoscyamine SL [Levsin Sl] 0.125 mg SL Q4HR PRN tab.subl 05/19/17 [Rx] Ergocalciferol (VITAMIN D2) [Vitamin D2] 50,000 unit PO FR 05/21/17 [History] 3 Allergy/AdvReac Type Severity Reaction Status Date / Time No Known Allergies Allergy Verified 05/16/17 10:14 All Systems PM: A 10-system review of systems was performed and is negative for pertinent findings except as documented above in the HPI. - Constitutional Vitals: Temp Pulse Resp BP Pulse Ox 98 F 49 16 141/62 95 05/21/17 18:50 05/21/17 18:50 05/21/17 18:50 05/21/17 18:50 05/21/17 18:50 General appearance: Present: A&O X 3, no acute distress - Head Head exam: Present: normocephalic - Eye Eye exam: Present: normal appearance - ENT ENT exam: Present: mucous membranes moist - Respiratory Respiratory exam: Present: CTAB. Absent: accessory muscle use, rales, rhonchi, wheezes - Cardiovascular Cardiovascular exam: Present: RRR, +S1, +S2. Absent: diastolic murmur, gallop, rubs, systolic murmur - GI/Abdominal GI/Abdominal exam: Present: normal bowel sounds, soft, no peritoneal signs. Absent: distended, tenderness - Extremities Exam Extremities exam: Absent: pedal edema - Expanded Neurological Exam Neurological exam expanded: Absent: expressive aphasia Speech: Absent: slurred Cranial Nerves: EOM's intact PM: Normal, nystagmus PM: Normal, tongue deviation PM: Normal Cerebellar function: heel to márquez: Normal Neuro motor strength exam: LUE: 5, RUE: 5, LLE: 5, RLE: 5 - Psychiatric Psychiatric exam: Present: normal mood - Skin Skin exam: Present: normal color Internal Med - H&P Results - Labs CBC & Chem 7: 05/21/17 13:23 05/21/17 13:23
[2017-05-21] MEDS ORDERED: Naloxone 0.4 MG/ML INJ IVP PRN (20:53)
[2017-05-21] MEDS ORDERED: Hyoscyamine SL 0.125 MG TAB.SUBL SL PRN (21:02)
[2017-05-22 05:00] LABS: Basophils % 0.6 %; Eosinophils # 0.3 K/mcL (0.0-0.6); Eosinophils % 4.7 %; Hematocrit 37.5 % (35.3-44.9); Hemoglobin 12.2 g/dL (11.5-15.4); Immature Granulocytes % 0.1 % (0-4); Lymphocytes # 2.6 K/mcL (0.6-4.6); Lymphocytes % 37.6 %; Mean Corpuscular HGB Conc 32.5 g/dL (31.6-35.5); Mean Corpuscular Hemoglobin 30.8 pg (28.0-33.3); Mean Corpuscular Volume 94.7 fL (83.0-100.0); Mean Platelet Volume 12.6 fL (9.4-12.4); Monocytes # 0.5 K/mcL (0.0-1.3); Monocytes % 7.9 %; Neutrophils # 3.4 K/mcL (1.6-8.9); Platelet Count 128 K/mcL (140-400); Red Blood Count 3.96 M/mcL (3.82-4.97); Red Cell Distribution Width 13.6 % (11.5-14.5); Segmented Neutrophils % 49.1 %
[2017-05-22 05:19] LABS: BUN/Creatinine Ratio 20 (6-26); Blood Urea Nitrogen 17 mg/dL (8-23); Carbon Dioxide 25 mEq/L (23-29); Chloride 111 mEq/L (98-107); Glucose 108 mg/dL (70-105); Osmolality,Calculated 294 (280-300); Potassium 3.8 mEq/L (3.5-5.1); Sodium 141 mEq/L (136-145); eGFR For African Americans > 60 (> 60); eGFR For Non-African Americans > 60 (> 60)
[2017-05-22] MEDS: Furosemide 20 MG TABLET PO SCH (09:16)
[2017-05-22] MEDS: (Mirabegron [Myrbetriq] 50 MG) PO SCH (09:16)
[2017-05-22] MEDS: (Omega-3/Dha/Epa/Fish Oil [Fish Oil 1,000 Mg Softgel) PO SCH (09:16)
--- NOTE | 2017-05-22 10:14 | Internal Med Progress Note ---
Date of Encounter: 05/22/17 Time of Encounter: 09:40 - Assessment and plan (1) Left leg weakness Current Visit: Yes Status: Acute Assessment and plan: CT head/CT angio neck: 1. Approximately 30% right and 50% left internal carotid artery stenosis by NASCET criteria due to calcified atherosclerotic plaque. 2. Mild stenosis at the origin of the vertebral arteries bilaterally. 3. Diffuse narrowing of the right middle cerebral artery, likely on the basis of intracranial sclerotic disease. 4. Moderate to severe multifocal stenosis of the distal intradural left vertebral artery. Neurology evaluation requested awaiting MRI brain/head 2D echo from 05/15/17: LVEF of 65-70%, no pulm htn, mild concentric LVH, no significant valvular dysfunction Carotid duplex from 05/15/17: Right proximal ICA 40-59% stenosis, Left ICA: 60-79 % stenosis in left proximal ICA continue ASA, Lipitor PT/OT evaluation requested (2) Bladder tumor Current Visit: No Status: Acute (3) CVA (cerebral vascular accident) Current Visit: No Status: Acute Assessment and plan: as listed above Qualifiers: CVA mechanism: unspecified Qualified Code(s): I63.9 - Cerebral infarction, unspecified (4) Hypertension Current Visit: No Status: Chronic Assessment and plan: BP within acceptable range holding home antihypertensives today given normotensive BP readings in the setting of acute CVA will closely monitor and restart Metoprolol and Lisinopril as needed Qualifiers: Hypertension type: essential hypertension Qualified Code(s): I10 - Essential (primary) hypertension (5) Hypothyroidism Current Visit: No Status: Chronic Assessment and plan: continue home dose of levothyroxine Qualifiers: Hypothyroidism type: acquired Qualified Code(s): E03.9 - Hypothyroidism, unspecified (6) DVT prophylaxis Current Visit: Yes Status: Acute Assessment and plan: heparin SQ - Subjective Interval history: Patient seen and examined with family present at bedside. Resting in bed and reports of persistent left leg weakness that is mildly improved from previous day. Denies any calf tenderness or pain, however is noted to have distal left leg weakness upon physical examination. Neurology evaluation with Dr. Jesus requested Awaiting MRI head/brain CT head/CT angio neck: 1. Approximately 30% right and 50% left internal carotid artery stenosis by NASCET criteria due to calcified atherosclerotic plaque. 2. Mild stenosis at the origin of the vertebral arteries bilaterally. 3. Diffuse narrowing of the right middle cerebral artery, likely on the basis of intracranial sclerotic disease. 4. Moderate to severe multifocal stenosis of the distal intradural left vertebral artery. - Constitutional Vitals: Temp Pulse Resp BP Pulse Ox 97.9 F 52 18 142/63 93 05/22/17 06:56 05/22/17 06:56 05/22/17 06:56 05/22/17 06:56 05/22/17 06:56 General appearance: Present: A&O X 3, no acute distress, obese, answers questions appropriately - Head Head exam: Present: atraumatic, normocephalic - Eye Eye exam: Present: conjuntiva pink, sclera anicteric - Respiratory Respiratory exam: Present: CTAB. Absent: respiratory distress, wheezes - Cardiovascular Cardiovascular exam: Present: RRR, +S1, +S2. Absent: diastolic murmur, gallop, rubs, systolic murmur - GI/Abdominal GI/Abdominal exam: Present: normal bowel sounds, soft, no peritoneal signs. Absent: distended, tenderness - Extremities Exam Extremities exam: Present: warm, radial pulses palpable and symmetrical. Absent : calf tenderness, pedal edema - Neurological Exam Neurological exam: Present: alert, oriented X3 (Lt distal extremity weakness ). Absent: pronater drift, facial droop, speech deficit - Psychiatric Psychiatric exam: Present: normal affect, normal mood Internal Medicine: Result - Labs CBC & Chem 7: 05/22/17 04:43 05/22/17 04:43 Labs: Short CBC 05/22/17 Range/Units 04:43 WBC 6.8 (4.3-11.1) K/mcL Hgb 12.2 (11.5-15.4) g/dL Hct 37.5 (35.3-44.9) % Plt Count 128 L (140-400) K/mcL Neutrophils # 3.4 (1.6-8.9) K/mcL BMP 05/22/17 04:43 Sodium 141 Potassium 3.8 Chloride 111 H Carbon Dioxide 25 BUN 17 Creatinine 0.85 Glucose 108 H Calcium 9.0 - ABG Interpretation ABG results: PT/INR, D-dimer PT 12.0 Seconds (9.4-12.1) 05/21/17 13:23 Consult Discharge Plan - Plan Referrals: Michael Steve MD [Primary Care Provider] -
--- NOTE | 2017-05-22 15:18 | Neurology - Consult Note ---
Date of Encounter: 05/22/17 Time of Encounter: 15:14 Assessment and Plan (1) CVA (cerebral vascular accident) Current Visit: No Status: Acute I believe that the new onset of left upper and lower extremity weakness is more than likely an extension of the infarct that occurred about a week or so ago. She did have bihemispheric involvement at that time it was suspected that there may have been an embolic phenomenon. However one can clearly identify the evolving infarct on the previous MRI scan of the brain was acute compared to the CAT scan of the brain which was done yesterday. It appears that it primarily involves the territory of the left anterior cerebral artery. I believe that the weakness is either due to ongoing edema or perhaps the vessels only partly occluded initially and has now completely occluded. Certainly I would recommend maintaining stroke protocol orders for nursing measures and neurologic workup. I also consider transesophageal echocardiogram to further look into the possibility of a cardioembolic source of embolus. The previous echocardiogram was negative, and if on the outside chance that this is yet another new event then we would be able to gain further information from a BORA. At this point I agree with low-dose heparin for DVT prophylaxis, however cannot also be in favor of anticoagulation particularly since he seems to have experienced an embolic event for which we cannot specifically rule out a cardiac source. I will defer to the internal medicine team in the urologist whether or not considering a bladder tumor, anticoagulation is a realistic option here. MRI scan of the brain is yet pending. Further recommendations will be made upon completion of the brain MRI. Qualifiers: CVA mechanism: unspecified Qualified Code(s): I63.9 - Cerebral infarction, unspecified History of Present Illness HPI: Ms. Alfredo is a 76 year old female who is seen for neurologic evaluation secondary to acute onset of left lower extremity weakness. She was actually seen and admitted here about a week or so ago with complaint upper complaints of right upper and lower extremity weakness at that time. She was initially seen and evaluated by my associate Dr. Jose. MRI scan of the brain completed at that time actually showed bihemispheric infarcts in the parasagittal regions and parietal occipital regions bilaterally. Suspect that there may have been an embolic event however no source was ever identified. She does not have a known history of atrial fibrillation. Ultimately she was released home and her deficits were improved. She was admitted to the hospital yesterday after experiencing sudden onset of weakness this time of the left lower extremity. Apparently she had some speech difficulties, she still has residual weakness of the left lower extremity. She also has weakness of the left upper extremity. She denies any visual changes. Denies headache. CT scan of the brain was obtained and does reveal an infarcts in the area of the right anterior cerebral artery territory. CTA scan of the brain also reveals narrowing of the right intracranial MCA and also reveals left vertebral artery stenosis. Apparently she had some difficulty tolerating antiplatelet therapy due to hematuria associated with a bladder tumor. Past Med Surg Social Fam HX - Past Medical History Medical history: hypertension, thyroid disease Psychiatric history: depression - Past Surgical History Surgical History: hysterectomy - Social History Smoking Status: Former smoker Smokeless Tobacco Status: No Alcohol use: none Drug use: none Medications and Allergies Atorvastatin Calcium [Lipitor] 20 mg PO HS 05/13/17 [History] Docusate [Colace] 100 mg PO BID #60 capsule 05/13/17 [Rx] Doxazosin [Cardura] 8 mg PO DAILY 05/13/17 [History] Furosemide [Lasix] 20 mg PO DAILY 05/13/17 [History] Levothyroxine Sodium [Synthroid] 137 mcg PO 0630 05/13/17 [History] Lisinopril [Zestril] 40 mg PO DAILY 05/13/17 [History] Metoprolol Succinate [Toprol Xl] 50 mg PO DAILY 05/13/17 [History] Mirabegron [Myrbetriq] 50 mg PO DAILY 05/13/17 [History] [place]-3/Dha/Epa/Fish Oil [Fish Oil 1,000 mg Softgel] 1 tab PO DAILY 05/13/17 [ History] Hyoscyamine SL [Levsin Sl] 0.125 mg SL Q4HR PRN tab.subl 05/19/17 [Rx] Ergocalciferol (VITAMIN D2) [Vitamin D2] 50,000 unit PO FR 05/21/17 [History] 3 Allergy/AdvReac Type Severity Reaction Status Date / Time No Known Allergies Allergy Verified 05/16/17 10:14 All Systems: The remainder of the systems were reviewed and are negative Review of Systems: 10 point review of systems is consistent with a history of present illness and otherwise negative. Physical Examination - Vital Signs Vital Signs: Initial Vital Signs Temp Pulse Resp BP Pulse Ox 97.9 F 56 15 133/60 98 05/21/17 13:02 05/21/17 13:02 05/21/17 13:02 05/21/17 13:02 05/21/17 13:02 - Neurologic Motor examination - right side: 5/5: deltoids, biceps, triceps, rotary derrick operator, hip flexors, tibialis Anterior, quadriceps, toe extension (EHL), plantarflexion Motor examination - left side: 4/5: deltoids, biceps, triceps, hip flexors, quadriceps, 5/5: rotary derrick operator, tibialis Anterior, toe extension (EHL), plantarflexion Detailed sensory examination: intact (Sensation is intact symmetrically.) Reflex and gait examination: other (No long tract signs are identifiable.) Mental Status Examination: awake, alert, oriented to person, oriented to place, oriented to time, follows commands appropriately, answers questions appropriately, no agnosia, no aphasia, no aproxia Cranial nerve examination: PERRL, EOMI, visual carroll intact, corneal reflexes brisk symmetrically, sensory to face intact, mastication intact, no facial asymmetry is present, no dysarthria, hearing is intact symmetrically, soft palate elevates bilaterally upon phonation, gag reflex intact, flexes SCM and trapezius muscles symmetrically with full power, tongue protrudes midline, no atrophy or facial fasiculations present Cerebellar examination: no dysmetria (Performs [id number] without ataxia.) Results - Laboratory Findings CBC and BMP: 05/22/17 04:43 05/22/17 04:43 Abnormal lab findings: Abnormal lab results Plt Count 128 K/mcL (140-400) L 05/22/17 04:43 MPV 12.6 fL (9.4-12.4) H 05/22/17 04:43 Chloride 111 mEq/L (98-107) H 05/22/17 04:43 Glucose 108 mg/dL (70-105) H 05/22/17 04:43 POC Glucose 123 mg/dL (58-89) H 05/22/17 11:59 Urine Blood Moderate (Negative) H 05/21/17 13:31 Urine Nitrite Positive (Negative) A 05/21/17 13:31 Ur Leukocyte Esterase Moderate (Negative) H 05/21/17 13:31 Urine Microscopic WBC 15-30 per hpf (0-3) H 05/21/17 13:31 Ur Squamous Epith Cells Moderate per lpf (None-Few) H 05/21/17 13:31 Ur Culture Indicated? YES (NO) A 05/21/17 13:31 Consult Discharge Plan - Plan Referrals: Michael Steve MD [Primary Care Provider] -
[2017-05-22] MEDS: *HR* Heparin 5,000 UNIT/ML VIAL SQ SCH (17:57)
[2017-05-23] MEDS: *HR* Heparin 5,000 UNIT/ML VIAL SQ SCH ×2 (05:29→16:46)
[2017-05-23 07:25] LABS: Basophils % 0.6 %; Eosinophils # 0.2 K/mcL (0.0-0.6); Eosinophils % 3.7 %; Hematocrit 39.2 % (35.3-44.9); Hemoglobin 12.6 g/dL (11.5-15.4); Immature Granulocytes % 0.3 % (0-4); Immature Platelets 8.6 % (1.1-6.1); Lymphocytes # 2.6 K/mcL (0.6-4.6); Lymphocytes % 40.9 %; Mean Corpuscular HGB Conc 32.1 g/dL (31.6-35.5); Mean Corpuscular Hemoglobin 30.8 pg (28.0-33.3); Mean Corpuscular Volume 95.8 fL (83.0-100.0); Mean Platelet Volume 13.1 fL (9.4-12.4); Monocytes # 0.5 K/mcL (0.0-1.3); Monocytes % 8.4 %; Nucleated Red Blood Cells 0.6 /100 WBC (0); Platelet Count 139 K/mcL (140-400); Red Blood Count 4.09 M/mcL (3.82-4.97); Red Cell Distribution Width 13.7 % (11.5-14.5); Segmented Neutrophils % 46.1 %
[2017-05-23 07:44] LABS: BUN/Creatinine Ratio 20 (6-26); Blood Urea Nitrogen 18 mg/dL (8-23); Calcium 9.1 mg/dL (8.6-10.3); Carbon Dioxide 27 mEq/L (23-29); Chloride 106 mEq/L (98-107); Glucose 118 mg/dL (70-105); Magnesium 2.3 mg/dL (1.6-2.6); Osmolality,Calculated 293 (280-300); Phosphorous 3.7 mg/dL (2.7-4.5); Potassium 3.8 mEq/L (3.5-5.1); Sodium 140 mEq/L (136-145); eGFR For African Americans > 60 (> 60); eGFR For Non-African Americans > 60 (> 60)
[2017-05-23] MEDS: Metoprolol XL (24 HR) Succ 50 MG TAB.ER.24H PO SCH (08:32)
[2017-05-23] MEDS: Furosemide 20 MG TABLET PO SCH (08:32)
[2017-05-23] MEDS: Lisinopril 20 MG TABLET PO SCH (08:33)
[2017-05-23] MEDS: (Omega-3/Dha/Epa/Fish Oil [Fish Oil 1,000 Mg Softgel) PO SCH (08:33)
[2017-05-23] MEDS: (Mirabegron [Myrbetriq] 50 MG) PO SCH (08:33)
--- NOTE | 2017-05-23 09:29 | Internal Med Progress Note ---
Date of Encounter: 05/23/17 Time of Encounter: 09:03 - Assessment and plan (1) Left leg weakness Current Visit: Yes Status: Acute Assessment and plan: CT head/CT angio neck: 1. Approximately 30% right and 50% left internal carotid artery stenosis by NASCET criteria due to calcified atherosclerotic plaque. 2. Mild stenosis at the origin of the vertebral arteries bilaterally. 3. Diffuse narrowing of the right middle cerebral artery, likely on the basis of intracranial sclerotic disease. 4. Moderate to severe multifocal stenosis of the distal intradural left vertebral artery. Neurology evaluation appreciated awaiting MRI brain/head 2D echo from 05/15/17: LVEF of 65-70%, no pulm htn, mild concentric LVH, no significant valvular dysfunction BORA requested to rule out any cardiac etiology contributing to patient's CVA Carotid duplex from 05/15/17: Right proximal ICA 40-59% stenosis, Left ICA: 60-79 % stenosis in left proximal ICA continue ASA, Lipitor awaiting PT/OT evaluation (2) CVA (cerebral vascular accident) Current Visit: No Status: Acute Assessment and plan: as listed above Qualifiers: CVA mechanism: unspecified Qualified Code(s): I63.9 - Cerebral infarction, unspecified (3) Bladder tumor Current Visit: No Status: Acute Assessment and plan: Urology evaluation requested with Dr. Coburn Pt was unable to tolerate Plavix in the past due to hematuria, will obtain urology input in starting DAPT agents and anticoagulation continue colemna care at this time (4) Hypertension Current Visit: No Status: Chronic Assessment and plan: noted to be hypertensive will resume home medications (Lisinopril and Metoprolol) will closely monitor BP Qualifiers: Hypertension type: essential hypertension Qualified Code(s): I10 - Essential (primary) hypertension (5) Hypothyroidism Current Visit: No Status: Chronic Assessment and plan: continue home dose of levothyroxine Qualifiers: Hypothyroidism type: acquired Qualified Code(s): E03.9 - Hypothyroidism, unspecified (6) DVT prophylaxis Current Visit: Yes Status: Acute Assessment and plan: heparin SQ (7) UTI (urinary tract infection) Current Visit: Yes Status: Acute Assessment and plan: Concern for contaminant given coleman cath, however given pt's immunocompromised state, will treat empirically started Ceftriaxone 1gm IV qd urine culture prelim: gram negative sharon, will follow up official results Qualifiers: Urinary tract infection type: site unspecified Hematuria presence: without hematuria Qualified Code(s): N39.0 - Urinary tract infection, site not specified - Subjective Interval history: Patient seen and examined at bedside. Resting in bed and reports of improvement in left leg weakness. Awaiting MRI, PT/OT evaluation No overnight events reported - Constitutional Vitals: Temp Pulse Resp BP Pulse Ox 97.8 F 57 17 160/66 96 05/23/17 07:27 05/23/17 07:27 05/23/17 07:27 05/23/17 07:27 05/23/17 07:27 General appearance: Present: A&O X 3, no acute distress, obese, answers questions appropriately - Head Head exam: Present: atraumatic, normocephalic - Eye Eye exam: Present: conjuntiva pink, sclera anicteric - Respiratory Respiratory exam: Present: CTAB. Absent: respiratory distress, wheezes - Cardiovascular Cardiovascular exam: Present: RRR, +S1, +S2. Absent: diastolic murmur, gallop, rubs, systolic murmur - GI/Abdominal GI/Abdominal exam: Present: normal bowel sounds, soft, no peritoneal signs. Absent: distended, tenderness - Extremities Exam Extremities exam: Present: warm, radial pulses palpable and symmetrical. Absent : calf tenderness, pedal edema - Neurological Exam Neurological exam: Present: oriented X3. Absent: pronater drift, facial droop, speech deficit - Psychiatric Psychiatric exam: Present: normal affect, normal mood Internal Medicine: Result - Labs CBC & Chem 7: 05/23/17 05:26 05/23/17 05:26 Labs: Short CBC 05/23/17 Range/Units 05:26 WBC 6.5 (4.3-11.1) K/mcL Hgb 12.6 (11.5-15.4) g/dL Hct 39.2 (35.3-44.9) % Plt Count 139 L (140-400) K/mcL Neutrophils # 3.0 (1.6-8.9) K/mcL BMP 05/23/17 05:26 Sodium 140 Potassium 3.8 Chloride 106 Carbon Dioxide 27 BUN 18 Creatinine 0.90 Glucose 118 H Calcium 9.1 - ABG Interpretation ABG results: PT/INR, D-dimer PT 12.0 Seconds (9.4-12.1) 05/21/17 13:23 Consult Discharge Plan - Plan Referrals: Michael Steve MD [Primary Care Provider] -
--- NOTE | 2017-05-23 10:16 | Urology - Consult Note ---
Date of Encounter: 05/23/17 Time of Encounter: 10:14 - Assessment and Plan (1) Bladder cancer Current Visit: Yes Status: Acute Assessment and plan: 76-year-old woman with a new diagnosis of bladder cancer. I left a catheter in after her transurethral resection of bladder tumor. I will order to have this removed tomorrow morning. If she has difficulty urinating, we can replace it if necessary. I think she will likely be fine to void on her own. We discussed her pathology report in detail. Follow-up would consist of routine surveillance cystoscopy. Qualifiers: Bladder location: lateral wall Qualified Code(s): C67.2 - Malignant neoplasm of lateral wall of bladder (2) UTI (urinary tract infection) Current Visit: Yes Status: Acute Assessment and plan: Gram-negative rods are growing out and her urine culture. She is currently on ceftriaxone. Await final urine culture results and eventually transition over to oral antibiotic. Qualifiers: Urinary tract infection type: site unspecified Hematuria presence: without hematuria Qualified Code(s): N39.0 - Urinary tract infection, site not specified (3) CVA (cerebral vascular accident) Current Visit: No Status: Acute Assessment and plan: She has had a recent stroke. She is currently on a baby aspirin and her urine has remained clear. If there is a need to advance her anticoagulants, we can cautiously proceed to do so. If her urine becomes bloody, it is typically best to hold them until her urine clears. Usually, aspirin is not a big concern for postoperative bleeding and this can remain on board. I will continue to follow along monitoring her urine color while she is an inpatient. Qualifiers: CVA mechanism: unspecified Qualified Code(s): I63.9 - Cerebral infarction, unspecified Urology CN:HPI Consult date: 05/23/17 Reason for consult Urology: Other (bladder cancer, uti, hematuria) Requesting physician: Kaia Plummer History of present illness: A 76-year-old woman was seen today in consultation after a transurethral resection of bladder tumor from 05/13/2017. 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 Unfortunately, she developed a stroke afterwards and had right-sided weakness. She was admitted on 05/14/2017 and was discharged on 05/19/2017. She was then readmitted on 05/21/2017 for further weakness. Anticoagulation is recommended by neurology. She previously was tried on Plavix shortly after surgery but then developed hematuria. She is currently on a baby aspirin. She has had an indwelling catheter since her surgery. The surgery was notable for a thin bladder wall. I left the catheter into allow for healing of the bladder. She is due to have her catheter removed. A urine culture was positive for gram-negative rods. She is on ceftriaxone. She says she is otherwise doing well and wishes to have her catheter removed. Past Med Surg Social Fam HX - Past Medical History Medical history: hypertension, thyroid disease Psychiatric history: depression - Past Surgical History Surgical History: hysterectomy - Social History Smoking Status: Former smoker Smokeless Tobacco Status: No Alcohol use: none Drug use: none Medications and Allergies Atorvastatin Calcium [Lipitor] 20 mg PO HS 05/13/17 [History] Docusate [Colace] 100 mg PO BID #60 capsule 05/13/17 [Rx] Doxazosin [Cardura] 8 mg PO DAILY 05/13/17 [History] Furosemide [Lasix] 20 mg PO DAILY 05/13/17 [History] Levothyroxine Sodium [Synthroid] 137 mcg PO 0630 05/13/17 [History] Lisinopril [Zestril] 40 mg PO DAILY 05/13/17 [History] Metoprolol Succinate [Toprol Xl] 50 mg PO DAILY 05/13/17 [History] Mirabegron [Myrbetriq] 50 mg PO DAILY 05/13/17 [History] [place]-3/Dha/Epa/Fish Oil [Fish Oil 1,000 mg Softgel] 1 tab PO DAILY 05/13/17 [ History] Hyoscyamine SL [Levsin Sl] 0.125 mg SL Q4HR PRN tab.subl 05/19/17 [Rx] Ergocalciferol (VITAMIN D2) [Vitamin D2] 50,000 unit PO FR 05/21/17 [History] 3 Allergy/AdvReac Type Severity Reaction Status Date / Time No Known Allergies Allergy Verified 05/16/17 10:14 Review of Systems - Constitutional weakness, no chills, no fever(s) - EENT Nose, mouth and throat: no dizziness - Cardiovascular no chest pain - Respiratory no dyspnea - Gastrointestinal no nausea, no vomiting - Genitourinary Genitourinary: no flank pain, no hematuria - Musculoskeletal no back pain - Integumentary no erythema, no rash - Neurological no weakness - Psychiatric no suicidal ideation - Hematologic/Lymphatic no easy bleeding - Allergic/Immunologic no wheezing Exam Initial Vital Signs Temp Pulse Resp BP Pulse Ox 97.9 F 56 15 133/60 98 05/21/17 13:02 05/21/17 13:02 05/21/17 13:02 05/21/17 13:02 05/21/17 13:02 - General physical appearance Present: well developed, well nourished, no distress - Eyes Absent: icteric - ENT Present: normal nares - Neck Present: trachea midline - Respiratory Present: normal respiratory effort - Cardiovascular Cardiovascular exam IM: RRR - Abdomen Abdomen: Present: soft - Genitourinary Present: other (Ames catheter in place with clear urine.) Urology Results - Labs 05/23/17 05:26 05/23/17 05:26 Abnormal lab results Plt Count 139 K/mcL (140-400) L 05/23/17 05:26 MPV 13.1 fL (9.4-12.4) H 05/23/17 05:26 Nucleated RBCs/100 WBC 0.6 /100 WBC (0) H 05/23/17 05:26 Immature Plt Fraction 8.6 % (1.1-6.1) H 05/23/17 05:26 Glucose 118 mg/dL (70-105) H 05/23/17 05:26 POC Glucose 138 mg/dL (58-89) H 05/22/17 15:42 Urine Blood Moderate (Negative) H 05/21/17 13:31 Urine Nitrite Positive (Negative) A 05/21/17 13:31 Ur Leukocyte Esterase Moderate (Negative) H 05/21/17 13:31 Urine Microscopic WBC 15-30 per hpf (0-3) H 05/21/17 13:31 Ur Squamous Epith Cells Moderate per lpf (None-Few) H 05/21/17 13:31 Ur Culture Indicated? YES (NO) A 05/21/17 13:31 Diabetes panel 05/23/17 Range/Units 05:26 Sodium 140 (136-145) mEq/L Potassium 3.8 (3.5-5.1) mEq/L Chloride 106 (98-107) mEq/L Carbon Dioxide 27 (23-29) mEq/L BUN 18 (8-23) mg/dL Creatinine 0.90 (0.60-1.20) mg/dL Glucose 118 H (70-105) mg/dL Calcium 9.1 (8.6-10.3) mg/dL Calcium panel 05/23/17 Range/Units 05:26 Calcium 9.1 (8.6-10.3) mg/dL Phosphorus 3.7 (2.7-4.5) mg/dL Pituitary panel 05/23/17 Range/Units 05:26 Sodium 140 (136-145) mEq/L Potassium 3.8 (3.5-5.1) mEq/L Chloride 106 (98-107) mEq/L Carbon Dioxide 27 (23-29) mEq/L BUN 18 (8-23) mg/dL Creatinine 0.90 (0.60-1.20) mg/dL Glucose 118 H (70-105) mg/dL Calcium 9.1 (8.6-10.3) mg/dL Adrenal panel 05/23/17 Range/Units 05:26 Sodium 140 (136-145) mEq/L Potassium 3.8 (3.5-5.1) mEq/L Chloride 106 (98-107) mEq/L Carbon Dioxide 27 (23-29) mEq/L BUN 18 (8-23) mg/dL Creatinine 0.90 (0.60-1.20) mg/dL Glucose 118 H (70-105) mg/dL Calcium 9.1 (8.6-10.3) mg/dL All other labs normal. Consult Discharge Plan - Plan Referrals: Michael Steve MD [Primary Care Provider] -
[2017-05-23] MEDS: cefTRIAXone 1,000 MG in Water for inj. (sterile) 20 ML 10 ML IVP SCH (10:32)
[2017-05-23] MEDS: Aspirin 81 MG TAB.CHEW PO SCH (10:33)
--- NOTE | 2017-05-23 14:41 | Electrocardiograph Report ---
[address] [address] Test Date: 2017-05-21 Pat Name: Mala Alfredo Department: 103 Room: 3B41 Gender: F [employer] Brazer/Solderer: [facility] : 1940 Requested By: Kaia Plummer Order Number: [id number] Reading MD: Jeff Rebolledo Measurements Intervals Brock Rate: 50 P: 60 NM: 178 QRS: -46 QRSD: 105 T: 60 QT: 436 QTc: 411 Interpretive Statements SINUS BRADYCARDIA MARKED LEFT AXIS DEVIATION LOW QRS VOLTAGE IN EXTREMITY LEADS Poor R wave progression Electronically Signed On 05-23-2017 14:39:31 EDT by Jeff Rebolledo
--- NOTE | 2017-05-23 19:06 | Neurology Progress Note ---
Date of Encounter: 05/23/17 Time of Encounter: 19:04 Assessment and Plan (1) CVA (cerebral vascular accident) Current Visit: No Status: Acute The repeat MRI scan of the brain today revealed extension/maturation of the infarct involving the territory of the right anterior cerebral artery. There is no evidence of hemorrhage or mass effect however. Clinically she feels that she may be slightly improved today. The BROA is still pending. This would be helpful of course and ruling out aortic arch atheroma that may have embolized. She was also seen by urology who suggested cautious advancement of her antiplatelet therapy. We can maintain aspirin 81 mg currently. I would like to at some point at least determine whether or not she would be at risk for future embolic events. Otherwise certainly aggressive management of her stroke risk factors is paramount. And transfer to a extended care facility for further rehabilitation would be appropriate. Unfortunately if she has an occult embolic source she may be at further risk for future events, however she also has a bladder neoplasm which may place her at risk for bleeding. Qualifiers: CVA mechanism: unspecified Qualified Code(s): I63.9 - Cerebral infarction, unspecified Subjective Interval history: The chart was reviewed, the patient was seen and examined. Her MRI was just completed. The MRI does confirm my suspicions. The acute infarct in the territory of the right anterior cerebral artery has matured. I suspect that this is the reason for her additional weakness of the left lower extremity. I am pleased to report however that she feels that the weakness is somewhat improved today. She is not having much trouble with the left upper extremity which fits with the territory of the involved artery. Objective - Constitutional Vitals: Temp Pulse Resp BP Pulse Ox 98.9 F 59 17 132/73 92 05/23/17 18:47 05/23/17 18:47 05/23/17 18:47 05/23/17 18:47 05/23/17 18:47 - Neurological Exam Motor examination - right side: 5/5: deltoids, biceps, triceps, street inspector, hip flexors, tibialis Anterior, quadriceps, toe extension (EHL), plantarflexion Motor examination - left side: 4/5: deltoids, biceps, triceps, hip flexors, quadriceps, 5/5: street inspector, tibialis Anterior, toe extension (EHL), plantarflexion Sensation intact: Present: intact (Sensation is intact symmetrically.) Reflex and gait examination: other (No long tract signs are identifiable.) Mental Status Examination: Present: awake, alert, oriented to person, oriented to place, oriented to time, follows commands appropriately, answers questions appropriately, no agnosia, no aphasia, no aproxia Cranial nerve examination: Present: PERRL, EOMI, visual carroll intact, corneal reflexes brisk symmetrically, sensory to face intact, mastication intact, no facial asymmetry is present, no dysarthria, hearing is intact symmetrically, soft palate elevates bilaterally upon phonation, gag reflex intact, flexes SCM and trapezius muscles symmetrically with full power, tongue protrudes midline, no atrophy or facial fasiculations present Cerebellar examination: Present: no dysmetria (Performs [id number] without ataxia.) - VTE Documentation of Mechanical Device: Intermittent pneumatic compression device Results - Laboratory Findings CBC and BMP: 05/23/17 05:26 05/23/17 05:26 Abnormal lab findings: Abnormal lab results Plt Count 139 K/mcL (140-400) L 05/23/17 05:26 MPV 13.1 fL (9.4-12.4) H 05/23/17 05:26 Nucleated RBCs/100 WBC 0.6 /100 WBC (0) H 05/23/17 05:26 Immature Plt Fraction 8.6 % (1.1-6.1) H 05/23/17 05:26 Glucose 118 mg/dL (70-105) H 05/23/17 05:26 POC Glucose 146 mg/dL (58-89) H 05/22/17 20:15 Urine Blood Moderate (Negative) H 05/21/17 13:31 Urine Nitrite Positive (Negative) A 05/21/17 13:31 Ur Leukocyte Esterase Moderate (Negative) H 05/21/17 13:31 Urine Microscopic WBC 15-30 per hpf (0-3) H 05/21/17 13:31 Ur Squamous Epith Cells Moderate per lpf (None-Few) H 05/21/17 13:31 Ur Culture Indicated? YES (NO) A 05/21/17 13:31 Consult Discharge Plan - Plan Referrals: Michael Steve MD [Primary Care Provider] -
[2017-05-24] MEDS: *HR* Heparin 5,000 UNIT/ML VIAL SQ SCH ×2 (05:35→16:49)
[2017-05-24 07:45] LABS: Basophils % 0.5 %; Eosinophils # 0.3 K/mcL (0.0-0.6); Eosinophils % 4.4 %; Hematocrit 38.7 % (35.3-44.9); Hemoglobin 12.4 g/dL (11.5-15.4); Immature Granulocytes % 0.2 % (0-4); Lymphocytes # 2.3 K/mcL (0.6-4.6); Lymphocytes % 35.5 %; Mean Corpuscular Hemoglobin 30.6 pg (28.0-33.3); Mean Corpuscular Volume 95.6 fL (83.0-100.0); Mean Platelet Volume 12.7 fL (9.4-12.4); Monocytes # 0.4 K/mcL (0.0-1.3); Monocytes % 6.8 %; Neutrophils # 3.3 K/mcL (1.6-8.9); Platelet Count 141 K/mcL (140-400); Red Blood Count 4.05 M/mcL (3.82-4.97); Red Cell Distribution Width 13.5 % (11.5-14.5); Segmented Neutrophils % 52.6 %
[2017-05-24 09:33] LABS: BUN/Creatinine Ratio 19 (6-26); Blood Urea Nitrogen 16 mg/dL (8-23); Calcium 9.3 mg/dL (8.6-10.3); Carbon Dioxide 27 mEq/L (23-29); Chloride 108 mEq/L (98-107); Glucose 128 mg/dL (70-105); Magnesium 2.2 mg/dL (1.6-2.6); Osmolality,Calculated 295 (280-300); Phosphorous 3.9 mg/dL (2.7-4.5); Potassium 3.9 mEq/L (3.5-5.1); Sodium 141 mEq/L (136-145); eGFR For African Americans > 60 (> 60); eGFR For Non-African Americans > 60 (> 60)
[2017-05-24] MEDS ORDERED: Lidocaine Viscous Oral Soln 15 ML SOLUTION MM PRN (12:16)
[2017-05-24] MEDS ORDERED: Tetracaine/Benzocaine/Butamben 200MG/SPRAY (100SPY/BOT) MM ONE (12:17)
[2017-05-24] MEDS ORDERED: 0.9 % Sodium Chloride 500 ML IVC ONE (12:17)
[2017-05-24] MEDS: *HR* Midazolam HCl 5 MG/5 ML VIAL IVP PRN ×3 (13:40→13:50)
[2017-05-24] MEDS: *HR* FentaNYL (PF) 100 MCG/2 ML VIAL IVP PRN ×3 (13:40→13:50)
[2017-05-24] MEDS: Aspirin 81 MG TAB.CHEW PO SCH (14:15)
[2017-05-24] MEDS: (Mirabegron [Myrbetriq] 50 MG) PO SCH (14:16)
[2017-05-24] MEDS: (Omega-3/Dha/Epa/Fish Oil [Fish Oil 1,000 Mg Softgel) PO SCH (14:16)
[2017-05-24] MEDS: Lisinopril 20 MG TABLET PO SCH (14:16)
[2017-05-24] MEDS: Metoprolol XL (24 HR) Succ 50 MG TAB.ER.24H PO SCH (14:16)
[2017-05-24] MEDS: Furosemide 20 MG TABLET PO SCH (14:16)
--- NOTE | 2017-05-24 16:11 | Urology Progress Note ---
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 We will see how she voids. Okay to anticoagulate per primary team. Qualifiers: Urinary tract infection type: site unspecified Hematuria presence: without hematuria Qualified Code(s): N39.0 - Urinary tract infection, site not specified (3) CVA (cerebral vascular accident) Current Visit: No Status: Acute Qualifiers: CVA mechanism: unspecified Qualified Code(s): I63.9 - Cerebral infarction, unspecified Progress Note Narrative: Catheter was removed today. She says she has been able to void. No hematuria noted. Urine culture growing out Enterobacter. Objective Initial Vital Signs Temp Pulse Resp BP Pulse Ox 97.9 F 56 15 133/60 98 05/21/17 13:02 05/21/17 13:02 05/21/17 13:02 05/21/17 13:02 05/21/17 13:02 - General physical appearance Present: well developed, well nourished, no distress - Respiratory Present: normal respiratory effort - Abdomen Present: soft - Labs 05/24/17 06:22 05/24/17 06:22 Diabetes panel 05/24/17 Range/Units 06:22 Sodium 141 (136-145) mEq/L Potassium 3.9 (3.5-5.1) mEq/L Chloride 108 H (98-107) mEq/L Carbon Dioxide 27 (23-29) mEq/L BUN 16 (8-23) mg/dL Creatinine 0.85 (0.60-1.20) mg/dL Glucose 128 H (70-105) mg/dL Calcium 9.3 (8.6-10.3) mg/dL Calcium panel 05/24/17 Range/Units 06:22 Calcium 9.3 (8.6-10.3) mg/dL Phosphorus 3.9 (2.7-4.5) mg/dL Pituitary panel 05/24/17 Range/Units 06:22 Sodium 141 (136-145) mEq/L Potassium 3.9 (3.5-5.1) mEq/L Chloride 108 H (98-107) mEq/L Carbon Dioxide 27 (23-29) mEq/L BUN 16 (8-23) mg/dL Creatinine 0.85 (0.60-1.20) mg/dL Glucose 128 H (70-105) mg/dL Calcium 9.3 (8.6-10.3) mg/dL Adrenal panel 05/24/17 Range/Units 06:22 Sodium 141 (136-145) mEq/L Potassium 3.9 (3.5-5.1) mEq/L Chloride 108 H (98-107) mEq/L Carbon Dioxide 27 (23-29) mEq/L BUN 16 (8-23) mg/dL Creatinine 0.85 (0.60-1.20) mg/dL Glucose 128 H (70-105) mg/dL Calcium 9.3 (8.6-10.3) mg/dL - VTE Documentation of Mechanical Device: Intermittent pneumatic compression device Consult Discharge Plan - Plan Referrals: Michael Steve MD [Primary Care Provider] -
[2017-05-24] MEDS: cefTRIAXone 1,000 MG in Water for inj. (sterile) 20 ML 10 ML IVP SCH (16:48)
--- NOTE | 2017-05-24 16:57 | Internal Med Progress Note ---
Date of Encounter: 05/24/17 Time of Encounter: 14:30 - Assessment and plan (1) Left leg weakness Current Visit: Yes Status: Acute Assessment and plan: CT head/CT angio neck: 1. Approximately 30% right and 50% left internal carotid artery stenosis by NASCET criteria due to calcified atherosclerotic plaque. 2. Mild stenosis at the origin of the vertebral arteries bilaterally. 3. Diffuse narrowing of the right middle cerebral artery, likely on the basis of intracranial sclerotic disease. 4. Moderate to severe multifocal stenosis of the distal intradural left vertebral artery. Neurology evaluation appreciated MRI head reviewed 2D echo from 05/15/17: LVEF of 65-70%, no pulm htn, mild concentric LVH, no significant valvular dysfunction BORA: No intracardiac evidence for thrombus. Mild plaque noted in the thoracic aorta. Normal LV and RV function. Dilated LA. Mild mitral regurgitation. Carotid duplex from 05/15/17: Right proximal ICA 40-59% stenosis, Left ICA: 60-79 % stenosis in left proximal ICA continue ASA, Lipitor PT evaluation recommended ECF tentative d/c to ECF pending neurology clearance and ECF placement (2) CVA (cerebral vascular accident) Current Visit: No Status: Acute Assessment and plan: as listed above Qualifiers: CVA mechanism: unspecified Qualified Code(s): I63.9 - Cerebral infarction, unspecified (3) Bladder tumor Current Visit: No Status: Acute Assessment and plan: Urology evaluation requested with Dr. Almas yipey cath removed pt tolerating ASA well will defer to neurology in regards to initiation of anticoagulation or DAPT (4) Hypertension Current Visit: No Status: Chronic Assessment and plan: BP within acceptable range continue home meds Qualifiers: Hypertension type: essential hypertension Qualified Code(s): I10 - Essential (primary) hypertension (5) Hypothyroidism Current Visit: No Status: Chronic Assessment and plan: continue levothyroxine Qualifiers: Hypothyroidism type: acquired Qualified Code(s): E03.9 - Hypothyroidism, unspecified (6) DVT prophylaxis Current Visit: Yes Status: Acute Assessment and plan: heparin sQ (7) UTI (urinary tract infection) Current Visit: Yes Status: Acute Assessment and plan: Concern for contaminant given coleman cath, however given pt's immunocompromised state, will treat empirically continue Ceftriaxone 1gm IV qd urine culture prelim: gram negative sharon, will follow up official results Qualifiers: Urinary tract infection type: site unspecified Hematuria presence: without hematuria Qualified Code(s): N39.0 - Urinary tract infection, site not specified - Time Spent With Patient Total time spent is greater than 50% in coordination of care (as documented) at patient's floor/unit and/or counseling patient: - Subjective Interval history: Patient seen and examined with family present at bedside. S/P BORA and denies any discomfort. Reports of feeling better compared to previous day. PT evaluation recommended ECF, [employer] social worker evaluation requested for placement No overnight events reported - Constitutional Vitals: Temp Pulse Resp BP Pulse Ox 98.0 F 85 18 138/75 95 05/24/17 15:49 05/24/17 15:49 05/24/17 15:49 05/24/17 15:49 05/24/17 15:49 General appearance: Present: A&O X 3, no acute distress, obese, answers questions appropriately - Head Head exam: Present: atraumatic, normocephalic - Eye Eye exam: Present: conjuntiva pink, sclera anicteric - Respiratory Respiratory exam: Present: CTAB. Absent: respiratory distress, wheezes - Cardiovascular Cardiovascular exam: Present: RRR, +S1, +S2. Absent: diastolic murmur, gallop, rubs, systolic murmur - GI/Abdominal GI/Abdominal exam: Present: normal bowel sounds, soft, no peritoneal signs. Absent: distended, tenderness - Extremities Exam Extremities exam: Present: warm, radial pulses palpable and symmetrical. Absent : calf tenderness, tenderness - Neurological Exam Neurological exam: Present: oriented X3. Absent: pronater drift, facial droop, speech deficit - Psychiatric Psychiatric exam: Present: normal affect, normal mood Internal Medicine: Result - Labs CBC & Chem 7: 05/24/17 06:22 05/24/17 06:22 Labs: Short CBC 05/24/17 Range/Units 06:22 WBC 6.3 (4.3-11.1) K/mcL Hgb 12.4 (11.5-15.4) g/dL Hct 38.7 (35.3-44.9) % Plt Count 141 (140-400) K/mcL Neutrophils # 3.3 (1.6-8.9) K/mcL BMP 05/24/17 06:22 Sodium 141 Potassium 3.9 Chloride 108 H Carbon Dioxide 27 BUN 16 Creatinine 0.85 Glucose 128 H Calcium 9.3 - ABG Interpretation ABG results: PT/INR, D-dimer PT 12.0 Seconds (9.4-12.1) 05/21/17 13:23 - Impressions Impressions Brain MRI 05/23/17 08:00 IMPRESSION: 1. Small to moderate volume acute ischemic infarcts involving the high posterior paramedian right frontal lobe in the distal right anterior cerebral artery territory. This infarct has increased in volume since prior brain MRI performed 05/14/2017 but is similar in appearance to prior head CT performed 05/21/2017. 2. No significant mass effect or intracranial hemorrhage. 3. Near complete interval resolution of previously present acute ischemic changes in the high posterior left frontal and left parietal lobes. 4. Stable mild chronic white matter microvascular ischemic changes. D/ / Dm Ho / Dm Ho Interpreting Provider: Dm Ho - VTE Documentation of Mechanical Device: Intermittent pneumatic compression device Consult Discharge Plan - Plan Referrals: Michael Steve MD [Primary Care Provider] -
--- NOTE | 2017-05-24 17:18 | Neurology Progress Note ---
Date of Encounter: 05/24/17 Time of Encounter: 17:15 Assessment and Plan (1) CVA (cerebral vascular accident) Current Visit: No Status: Acute It appears that Mala has had an embolic event however no embolic source was ever identified. Perhaps it was a cardio embolic source or thromboembolic source from the aortic arch that is now fragmented and is no longer apparent. At this juncture I feel that aspirin 325 mg daily would be the best option. I feel she is a good candidate for a few weeks of inpatient rehabilitation and then perhaps home. I will reevaluate her at your request. She stroke risk factor management is paramount. Maintain her on statin therapy antihypertensives. He may discharge her at your discretion. We may discontinue it NIH scale monitoring. Qualifiers: CVA mechanism: unspecified Qualified Code(s): I63.9 - Cerebral infarction, unspecified Subjective Interval history: The chart was reviewed, patient was seen and examined. She continues to improve. Today she was able to get out of her bed and walk to the bathroom without difficulty. On the left leg is getting stronger. She did have her BORA which did not reveal any evidence of a embolic source. The CTA does not reveal stenosis of either ICA significant enough to warrant surgery. Patient is been cleared for the use of anticoagulation or antiplatelet therapy. 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, tibialis Anterior, toe extension (EHL), plantarflexion Sensation intact: Present: intact (Sensation is intact symmetrically.) Reflex and gait examination: other (No long tract signs are identifiable.) Mental Status Examination: Present: awake, alert, oriented to person, oriented to place, oriented to time, follows commands appropriately, answers questions appropriately, no agnosia, no aphasia, no aproxia Cranial nerve examination: Present: PERRL, EOMI, visual carroll intact, corneal reflexes brisk symmetrically, sensory to face intact, mastication intact, no facial asymmetry is present, no dysarthria, hearing is intact symmetrically, soft palate elevates bilaterally upon phonation, gag reflex intact, flexes SCM and trapezius muscles symmetrically with full power, tongue protrudes midline, no atrophy or facial fasiculations present Cerebellar examination: Present: no dysmetria (Performs [id number] without ataxia.) - VTE Documentation of Mechanical Device: Intermittent pneumatic compression device Results - Laboratory Findings CBC and BMP: 05/24/17 06:22 05/24/17 06:22 Abnormal lab findings: Abnormal lab results MPV 12.7 fL (9.4-12.4) H 05/24/17 06:22 Nucleated RBCs/100 WBC 0.6 /100 WBC (0) H 05/23/17 05:26 Immature Plt Fraction 8.6 % (1.1-6.1) H 05/23/17 05:26 Chloride 108 mEq/L (98-107) H 05/24/17 06:22 Glucose 128 mg/dL (70-105) H 05/24/17 06:22 POC Glucose 131 mg/dL (58-89) H 05/23/17 20:55 Urine Blood Moderate (Negative) H 05/21/17 13:31 Urine Nitrite Positive (Negative) A 05/21/17 13:31 Ur Leukocyte Esterase Moderate (Negative) H 05/21/17 13:31 Urine Microscopic WBC 15-30 per hpf (0-3) H 05/21/17 13:31 Ur Squamous Epith Cells Moderate per lpf (None-Few) H 05/21/17 13:31 Ur Culture Indicated? YES (NO) A 05/21/17 13:31 Consult Discharge Plan - Plan Referrals: Michael Steve MD [Primary Care Provider] -
[2017-05-25] MEDS: *HR* Heparin 5,000 UNIT/ML VIAL SQ SCH ×2 (05:52→17:56)
[2017-05-25 07:18] LABS: Basophils # 0.1 K/mcL (0.0-0.2); Basophils % 0.8 %; Eosinophils # 0.3 K/mcL (0.0-0.6); Eosinophils % 4.8 %; Hematocrit 39.4 % (35.3-44.9); Hemoglobin 12.7 g/dL (11.5-15.4); Immature Granulocytes % 0.2 % (0-4); Lymphocytes # 2.2 K/mcL (0.6-4.6); Lymphocytes % 35.5 %; Mean Corpuscular HGB Conc 32.2 g/dL (31.6-35.5); Mean Corpuscular Hemoglobin 30.2 pg (28.0-33.3); Mean Corpuscular Volume 93.6 fL (83.0-100.0); Mean Platelet Volume 12.7 fL (9.4-12.4); Monocytes # 0.5 K/mcL (0.0-1.3); Monocytes % 7.4 %; Neutrophils # 3.2 K/mcL (1.6-8.9); Platelet Count 135 K/mcL (140-400); Red Blood Count 4.21 M/mcL (3.82-4.97); Red Cell Distribution Width 13.3 % (11.5-14.5); Segmented Neutrophils % 51.3 %
[2017-05-25 07:39] LABS: BUN/Creatinine Ratio 23 (6-26); Blood Urea Nitrogen 18 mg/dL (8-23); Calcium 9.3 mg/dL (8.6-10.3); Carbon Dioxide 26 mEq/L (23-29); Chloride 107 mEq/L (98-107); Glucose 115 mg/dL (70-105); Magnesium 2.2 mg/dL (1.6-2.6); Osmolality,Calculated 295 (280-300); Phosphorous 3.5 mg/dL (2.7-4.5); Potassium 3.8 mEq/L (3.5-5.1); Sodium 141 mEq/L (136-145); eGFR For African Americans > 60 (> 60); eGFR For Non-African Americans > 60 (> 60)
[2017-05-25] MEDS: Furosemide 20 MG TABLET PO SCH (07:52)
[2017-05-25] MEDS: Aspirin 81 MG TAB.CHEW PO SCH (07:52)
[2017-05-25] MEDS: Lisinopril 20 MG TABLET PO SCH (07:52)
[2017-05-25] MEDS: Metoprolol XL (24 HR) Succ 50 MG TAB.ER.24H PO SCH (07:52)
[2017-05-25] MEDS: cefTRIAXone 1,000 MG in Water for inj. (sterile) 20 ML 10 ML IVP SCH (07:56)
[2017-05-25] MEDS: (Mirabegron [Myrbetriq] 50 MG) PO SCH (07:58)
[2017-05-25] MEDS: (Omega-3/Dha/Epa/Fish Oil [Fish Oil 1,000 Mg Softgel) PO SCH (07:58)
[2017-05-25] MEDS ORDERED: Aspirin 81 MG TAB.CHEW PO ONE (09:15)
[2017-05-25] MEDS: Aspirin Enteric Coated 325 MG Tablet PO SCH (09:20)
--- NOTE | 2017-05-25 09:27 | Discharge Summary ---
- NOTES TO OUTPATIENT PROVIDER Notes to Outpatient Provider: Continue oral antibiotics for a total of ten days , last day: 06/01/17 Orders not resulted at time of discharge: Pending orders 05/22/17 21:15 Culture,Urine [RM] Stat Date of Encounter: 05/25/17 Time of Encounter: 09:16 - Discharge Diagnosis (1) Left leg weakness Priority: Primary Status: Acute (2) CVA (cerebral vascular accident) Priority: Secondary Status: Chronic Qualifiers: CVA mechanism: unspecified Qualified Code(s): I63.9 - Cerebral infarction, unspecified (3) Bladder tumor Priority: Secondary Status: Chronic (4) Hypertension Priority: Secondary Status: Chronic Qualifiers: Hypertension type: essential hypertension Qualified Code(s): I10 - Essential (primary) hypertension (5) Hypothyroidism Priority: Secondary Status: Chronic Qualifiers: Hypothyroidism type: acquired Qualified Code(s): E03.9 - Hypothyroidism, unspecified (6) DVT prophylaxis Priority: Secondary Status: Acute (7) UTI (urinary tract infection) Priority: Secondary Status: Acute Qualifiers: Urinary tract infection type: site unspecified Hematuria presence: without hematuria Qualified Code(s): N39.0 - Urinary tract infection, site not specified Hospital course: Ms. Alfredo is a 76 year old female with PMH Of CVA, HTN, Hypothyroidism, HLD, bladder tumor who was admitted for left leg weakness. She was evaluated by neurology and underwent stroke work up. She had a BORA to rule out any cardia etiology contributing to her CVA. BORA was negative. Pt was also evaluated by urology as she recently underwent TURP for bladder tumor and had a coleman catheter in place. Urology removed the coleman cath and pt was allowed to be started on antiplatlet agent by urology. She was started on ASA. She did not have any hematuria throughout the course of her hospitalization. she was also noted to have a UTI and was started on IV abx. Abx were adjusted as per the urine culture reports. Pt was evaluated by physical therapy and ECF was recommended. Pt is currently medically stable for discharge to ECF, discharge pending ECF placement. Discharge discussed with: patient, nurse, case management - Time Spent with Patient Total time spent providing and/or coordinating discharge services: - Discharge Medications Home Medications: Atorvastatin Calcium [Lipitor] 20 mg PO HS 05/13/17 [History] Docusate [Colace] 100 mg PO BID #60 capsule 05/13/17 [Rx] Doxazosin [Cardura] 8 mg PO DAILY 05/13/17 [History] Furosemide [Lasix] 20 mg PO DAILY 05/13/17 [History] Levothyroxine Sodium [Synthroid] 137 mcg PO 0630 05/13/17 [History] Lisinopril [Zestril] 40 mg PO DAILY 05/13/17 [History] Metoprolol Succinate [Toprol Xl] 50 mg PO DAILY 05/13/17 [History] Mirabegron [Myrbetriq] 50 mg PO DAILY 05/13/17 [History] [place]-3/Dha/Epa/Fish Oil [Fish Oil 1,000 mg Softgel] 1 tab PO DAILY 05/13/17 [ History] Hyoscyamine SL [Levsin Sl] 0.125 mg SL Q4HR PRN tab.subl 05/19/17 [Rx] Ergocalciferol (VITAMIN D2) [Vitamin D2] 50,000 unit PO FR 05/21/17 [History] Aspirin Enteric Coated [Aspirin EC] 325 mg PO DAILY tablet. 05/25/17 [Rx] Ciprofloxacin [Cipro] 500 mg PO BID #14 tablet 05/25/17 [Rx] Allergies/Adverse Reactions: 3 Allergy/AdvReac Type Severity Reaction Status Date / Time No Known Allergies Allergy Verified 05/16/17 10:14 Date of admission: 05/21/17 16:56 Primary care physician: Michael Steve MD Consults: 05/21/17 20:53 Consult to Neurology [CONS] Routine Consulting Provider: Neurology [facility] Reason for Consult: Sided weakness with concerns for TIA versus CVA with recent history of CVA Call Completed: No 05/21/17 20:56 Consult to Physical Therapy [CONS] Routine Comment: Evaluate, develop and implement POC Reason for Consult: CVA Does patient have active BEDREST order?: No Is patient medically & hemodynamically stable?: Yes Patient assessed for mobility or mobilized this visit?: No 05/22/17 10:10 Consult to Occupational Therapy [CONS] Stat Comment: Evaluate, develop and implement POC Reason for Consult: CVA Does patient have active BEDREST order?: No Is patient medically & hemodynamically stable?: Yes Patient assessed for mobility or mobilized this visit?: Yes 05/23/17 09:00 Consult to Urology [CONS] Routine Consulting Provider: Urologkenneth Parson Reason for Consult: bladder tumor Call Completed: Yes 05/24/17 09:56 Consult to Bulldozer Mechanic [CONS] Routine Reason for SW Consult: ecf placement Discharging clinician: Kaia Plummer Anticipated date of discharge: 05/25/17 - Constitutional Vitals: Temp Pulse Resp BP Pulse Ox 98.6 F 51 16 147/80 94 05/25/17 06:35 05/25/17 06:35 05/25/17 06:35 05/25/17 06:35 05/25/17 06:35 General appearance: Present: A&O X 3, no acute distress, obese, answers questions appropriately - Head Head exam: Present: atraumatic, normocephalic - Eye Eye exam: Present: conjuntiva pink, sclera anicteric - Respiratory Respiratory exam: Present: CTAB. Absent: respiratory distress, wheezes - Cardiovascular Cardiovascular exam: Present: RRR, +S1, +S2 - GI/Abdominal GI/Abdominal exam: Present: normal bowel sounds, soft, no peritoneal signs. Absent: distended, tenderness - Extremities Exam Extremities exam: Present: warm, radial pulses palpable and symmetrical. Absent : calf tenderness, pedal edema - Neurological Exam Neurological exam: Present: oriented X3. Absent: pronater drift, facial droop, speech deficit - Psychiatric Psychiatric exam: Present: normal affect, normal mood - Patient Status Disposition: Transfer SNF Condition: Good Functional capacity at discharge: uses cane/walker Overall status at discharge: patient is back to baseline - Discharge Instructions Follow Up With: Michael Steve MD [Primary Care Provider] - Additional Instructions: Please follow up with your primary care physician within five days after your discharge from the hospital. Please follow up with neurology within two weeks after your discharge from the hospital. Please follow up with urology within two weeks after your discharge from the hospital. Please continue oral antibiotics for a total of ten days, last day: 06/01/17 after the evening dose. Aspirin 325mg once a day has been added to your home medications. Resume all other medications as prescribed by your primary care physician. - Diet and Activity Activity: as per physical therapy Diet: low fat, low cholesterol, low salt diet - VTE Documentation of Mechanical Device: Intermittent pneumatic compression device
--- NOTE | 2017-05-25 09:38 | Physician Discharge Referral ---
ExtendedCare Referral Info Transfer To: F Provider in Charge after Transfer: PCP - Diagnosis (1) Left leg weakness Priority: Primary Status: Acute (2) CVA (cerebral vascular accident) Priority: Secondary Status: Chronic (3) Bladder tumor Priority: Secondary Status: Chronic (4) Hypertension Priority: Secondary Status: Chronic (5) Hypothyroidism Priority: Secondary Status: Chronic (6) DVT prophylaxis Priority: Secondary Status: Acute (7) UTI (urinary tract infection) Priority: Secondary Status: Acute - Transfer Medications Home Medications: Atorvastatin Calcium [Lipitor] 20 mg PO HS 05/13/17 [History] Docusate [Colace] 100 mg PO BID #60 capsule 05/13/17 [Rx] Doxazosin [Cardura] 8 mg PO DAILY 05/13/17 [History] Furosemide [Lasix] 20 mg PO DAILY 05/13/17 [History] Levothyroxine Sodium [Synthroid] 137 mcg PO 0630 05/13/17 [History] Lisinopril [Zestril] 40 mg PO DAILY 05/13/17 [History] Metoprolol Succinate [Toprol Xl] 50 mg PO DAILY 05/13/17 [History] Mirabegron [Myrbetriq] 50 mg PO DAILY 05/13/17 [History] [place]-3/Dha/Epa/Fish Oil [Fish Oil 1,000 mg Softgel] 1 tab PO DAILY 05/13/17 [ History] Hyoscyamine SL [Levsin Sl] 0.125 mg SL Q4HR PRN tab.subl 05/19/17 [Rx] Ergocalciferol (VITAMIN D2) [Vitamin D2] 50,000 unit PO FR 05/21/17 [History] Aspirin Enteric Coated [Aspirin EC] 325 mg PO DAILY tablet. 05/25/17 [Rx] Ciprofloxacin [Cipro] 500 mg PO BID #14 tablet 05/25/17 [Rx] Allergies/Adverse Reactions: 3 Allergy/AdvReac Type Severity Reaction Status Date / Time No Known Allergies Allergy Verified 05/16/17 10:14 - Respiratory Orders Smoking Cessation: Smoking cessation has been advised. For more information, call the [employer] Tobacco Quit Line at 4-403-KASM-NOW. - Rehabiliation Orders Other: Please follow up with your primary care physician within five days after your discharge from the hospital. Please follow up with neurology within two weeks after your discharge from the hospital. Please follow up with urology within two weeks after your discharge from the hospital. Please continue oral antibiotics for a total of ten days, last day: 06/01/17 after the evening dose. Aspirin 325mg once a day has been added to your home medications. Resume all other medications as prescribed by your primary care physician. CERTIFICATION: I certify that the transfer of the above named patient to an Extended Care Facility is necessary for the continuing treatment of the diagnosis listed. The above information is true and accurate reflection of patient's current condition. Confidential - Redisclosure prohibited without a patient's written consent.
[2017-05-26] MEDS: *HR* Heparin 5,000 UNIT/ML VIAL SQ SCH (05:50)
--- NOTE | 2017-05-26 07:54 | Urology Progress Note ---
Date of Encounter: 05/26/17 Time of Encounter: 07:53 - Assessment and Plan (1) Bladder cancer Current Visit: Yes Status: Acute Assessment and plan: Urine is clear after TURBT. Okay to continue with anticoagulation. She can follow up me in the office in 1-2 weeks and we will arrange for outpatient cystoscopy in about 3 months. Qualifiers: Bladder location: lateral wall Qualified Code(s): C67.2 - Malignant neoplasm of lateral wall of bladder (2) UTI (urinary tract infection) Current Visit: Yes Status: Acute Qualifiers: Urinary tract infection type: site unspecified Hematuria presence: without hematuria Qualified Code(s): N39.0 - Urinary tract infection, site not specified (3) CVA (cerebral vascular accident) Current Visit: No Status: Chronic Qualifiers: CVA mechanism: unspecified Qualified Code(s): I63.9 - Cerebral infarction, unspecified Progress Note Narrative: She is doing well. She has been voiding without any difficulty after her catheter has been removed. I was able to see the urine in the commode today and it was clear. Objective Initial Vital Signs Temp Pulse Resp BP Pulse Ox 97.9 F 56 15 133/60 98 05/21/17 13:02 05/21/17 13:02 05/21/17 13:02 05/21/17 13:02 05/21/17 13:02 - General physical appearance Present: well developed, well nourished, no distress - Labs 05/25/17 06:16 05/25/17 06:16 - VTE Documentation of Mechanical Device: Intermittent pneumatic compression device Consult Discharge Plan - Plan Additional Instructions: Please follow up with your primary care physician within five days after your discharge from the hospital. Please follow up with neurology within two weeks after your discharge from the hospital. Please follow up with urology within two weeks after your discharge from the hospital. Please continue oral antibiotics for a total of ten days, last day: 06/01/17 after the evening dose. Aspirin 325mg once a day has been added to your home medications. Resume all other medications as prescribed by your primary care physician. Referrals: Michael Steve MD [Primary Care Provider] -
[2017-05-26] MEDS: Aspirin Enteric Coated 325 MG Tablet PO SCH (09:09)
[2017-05-26] MEDS: Metoprolol XL (24 HR) Succ 50 MG TAB.ER.24H PO SCH (09:10)
[2017-05-26] MEDS: Lisinopril 20 MG TABLET PO SCH (09:10)
[2017-05-26] MEDS: Furosemide 20 MG TABLET PO SCH (09:10)
[2017-05-26] MEDS: (Omega-3/Dha/Epa/Fish Oil [Fish Oil 1,000 Mg Softgel) PO SCH (09:10)
[2017-05-26] MEDS: (Mirabegron [Myrbetriq] 50 MG) PO SCH (09:10)
--- NOTE | 2017-05-26 09:39 | Internal Med Progress Note ---
Date of Encounter: 05/26/17 Time of Encounter: 09:10 - Assessment and plan (1) Left leg weakness Current Visit: Yes Status: Acute Assessment and plan: CT head/CT angio neck: 1. Approximately 30% right and 50% left internal carotid artery stenosis by NASCET criteria due to calcified atherosclerotic plaque. 2. Mild stenosis at the origin of the vertebral arteries bilaterally. 3. Diffuse narrowing of the right middle cerebral artery, likely on the basis of intracranial sclerotic disease. 4. Moderate to severe multifocal stenosis of the distal intradural left vertebral artery. Neurology evaluation appreciated MRI head reviewed 2D echo from 05/15/17: LVEF of 65-70%, no pulm htn, mild concentric LVH, no significant valvular dysfunction BORA: No intracardiac evidence for thrombus. Mild plaque noted in the thoracic aorta. Normal LV and RV function. Dilated LA. Mild mitral regurgitation. Carotid duplex from 05/15/17: Right proximal ICA 40-59% stenosis, Left ICA: 60-79 % stenosis in left proximal ICA continue ASA, Lipitor PT evaluation recommended ECF discharge pending ECF placement (2) CVA (cerebral vascular accident) Current Visit: No Status: Chronic Assessment and plan: as listed above Qualifiers: CVA mechanism: unspecified Qualified Code(s): I63.9 - Cerebral infarction, unspecified (3) Bladder tumor Current Visit: No Status: Chronic Assessment and plan: Urology evaluation appreciated coleman cath removed, pt voiding well without any discomfort. No hematuria reported pt tolerating ASA well (4) Hypertension Current Visit: No Status: Chronic Assessment and plan: BP within acceptable range continue home meds Qualifiers: Hypertension type: essential hypertension Qualified Code(s): I10 - Essential (primary) hypertension (5) Hypothyroidism Current Visit: No Status: Chronic Assessment and plan: continue levothyroxine Qualifiers: Hypothyroidism type: acquired Qualified Code(s): E03.9 - Hypothyroidism, unspecified (6) DVT prophylaxis Current Visit: Yes Status: Acute Assessment and plan: heparin sQ (7) UTI (urinary tract infection) Current Visit: Yes Status: Acute Assessment and plan: Concern for contaminant given coleman cath, however given pt's immunocompromised state, will treat empirically continue Ciprofloxacin (last day of abx: 06/01/17) abx adjusted as per urine culture report Qualifiers: Urinary tract infection type: site unspecified Hematuria presence: without hematuria Qualified Code(s): N39.0 - Urinary tract infection, site not specified - Time Spent With Patient Total time spent is greater than 50% in coordination of care (as documented) at patient's floor/unit and/or counseling patient: - Subjective Interval history: Pt seen and examined with family present at bedside. Pt denies any discomfort and reports of sleeping well throughout the night. Participating with physical therapy. Pt encouraged to get out of bed to chair. No over night events reported. Pt discharged to ECF pending placement ASA increased to 325mg PO qd as per neurology recommendations. - Constitutional Vitals: Temp Pulse Resp BP Pulse Ox 98.1 F 55 16 156/71 93 05/26/17 06:56 05/26/17 06:56 05/26/17 06:56 05/26/17 06:56 05/26/17 06:56 General appearance: Present: A&O X 3, no acute distress, obese, answers questions appropriately - Head Head exam: Present: atraumatic, normocephalic - Eye Eye exam: Present: conjuntiva pink, sclera anicteric - Respiratory Respiratory exam: Present: CTAB. Absent: respiratory distress, wheezes - Cardiovascular Cardiovascular exam: Present: RRR, +S1, +S2. Absent: diastolic murmur, gallop, rubs, systolic murmur - GI/Abdominal GI/Abdominal exam: Present: normal bowel sounds, soft, no peritoneal signs. Absent: distended, tenderness - Extremities Exam Extremities exam: Present: warm, radial pulses palpable and symmetrical. Absent : calf tenderness - Neurological Exam Neurological exam: Present: oriented X3 Internal Medicine: Result - Labs CBC & Chem 7: 05/25/17 06:16 05/25/17 06:16 - ABG Interpretation ABG results: PT/INR, D-dimer PT 12.0 Seconds (9.4-12.1) 05/21/17 13:23 - VTE Documentation of Mechanical Device: Intermittent pneumatic compression device Consult Discharge Plan - Plan Additional Instructions: Please follow up with your primary care physician within five days after your discharge from the hospital. Please follow up with neurology within two weeks after your discharge from the hospital. Please follow up with urology within two weeks after your discharge from the hospital. Please continue oral antibiotics for a total of ten days, last day: 06/01/17 after the evening dose. Aspirin 325mg once a day has been added to your home medications. Resume all other medications as prescribed by your primary care physician. Referrals: Michael Steve MD [Primary Care Provider] -
[2017-05-26 15:24] VITALS: BP 147/70
== END 2017-05-26 16:45 ==
LOC: 3BNU 12:55 → EMEROO 12:55 → SUATTDRO 16:56 → 3BNU 18:33
PROVIDERS: ADMIT Internal Medicine; ATTEND Internal Medicine